=== PATIENT | male | born 1975 | race Two or more races ===

== ENCOUNTER 2016-08-10 18:11 | Inpatient (IN) | payer MEDICARE ==
[~2016-08-10] VITALS: Ht 175.3 cm; Wt 92.5 kg
[2016-08-10 19:56] LABS: BILIRUBIN,URINE SMALL (NEG); GLUCOSE,URINE NEGATIVE (NEG); NITRITE,URINE NEGATIVE (NEG); PH,URINE 5.5; PROTEIN,URINE 100 mg/dL (NEG-TRACE); UROBILINOGEN,URINE 0.2 mg/dL (0.2 mg/dL)
[2016-08-10] MEDS ORDERED: ONDANSETRON PF 4 MG/2 ML VIAL. IV ONE (20:00)
[2016-08-10] MEDS ORDERED: IV NORMAL SALINE 1000ML BAG 1,000 ML IV ONE (20:00)
[2016-08-10] MEDS ORDERED: FENTANYL PF 100 MCG/2 ML VIAL. IV ONE (20:00)
[2016-08-10 20:05] LABS: BASO # 0.1 x10^3/uL (0.0-0.2); BASO % 1 % (0-3); EOS % 2 % (0-3); HEMATOCRIT 48.4 % (39.0-53.0); HEMOGLOBIN 16.8 g/dL (13.0-17.5); LYMPH # 1.5 x10^3/uL (1.0-4.8); LYMPH % 14 % (24-48); MEAN CORPUSCULAR HEMOGLOBIN 31 pg (25-35); MEAN CORPUSCULAR HGB CONC 35 g/dL (31-37); MEAN CORPUSCULAR VOLUME 90 fL (79-100); MONO % 12 % (0-9); NEUT % 73 % (31-73); PLATELET COUNT 190 x10^3/uL (140-400); RED BLOOD COUNT 5.36 x10^6/uL (4.30-5.70); RED CELL DISTRIBUTION WIDTH 13.1 % (11.5-14.5); WHITE BLOOD COUNT 10.9 x10^3/uL (4.0-11.0)
[2016-08-10 20:21] LABS: BACTERIA,URINE 0 /HPF (0-FEW); SQUAMOUS EPITHELIAL CELL,UR OCC /LPF
[2016-08-10 20:21] LABS: CALCIUM 9.2 mg/dL (8.5-10.1); CREATININE 1.6 mg/dL (0.7-1.3); GFR 48.1; POTASSIUM 3.9 mmol/L (3.5-5.1)
[2016-08-10 20:28] LABS: ALBUMIN 3.7 g/dL (3.4-5.0); TOTAL BILIRUBIN 0.3 mg/dL (0.2-1.0); TOTAL PROTEIN 7.4 g/dL (6.4-8.2)
--- NOTE | 2016-08-10 20:33 | RAD ---
PROCEDURE CT scan of the abdomen and pelvis without contrast 08/10/2016 HISTORY Severe right flank pain since last week. TECHNIQUE Unenhanced contiguous, 2 millimeter axial sections were obtained through the abdomen and pelvis. One or more of the following individualized dose reduction techniques were utilized for this study: 1. Automated exposure control. 2. Adjustment of the mA and/or kV according to patient size. 3. Use of iterative reconstruction technique. FINDINGS Images through the lung bases demonstrate minimal dependent subsegmental atelectasis bilaterally. The liver, spleen, pancreas and adrenal glands are within normal limits. Several nonobstructing calculi are seen scattered throughout the left kidney. These measure 1-3 millimeters in size. There is no evidence of obstruction the left collecting system. Mild dilatation of the right intrarenal collecting system is seen. The right renal pelvis and proximal right ureter are dilated. Within the proximal/mid right ureter a 6 millimeter ureteral calculus is seen. This is at the L3 level. It is causing mild obstruction of the right collecting system. No additional ureteral calculus is noted. The abdominal aorta tapers normally. The gallbladder is slightly contracted. No free fluid or free air is seen within the abdomen. There is no evidence of bowel obstruction. Air and stool is seen throughout the colon. The appendix is partially visualized. Images through the pelvis demonstrate the urinary bladder to be contracted. A 2.3 centimeter calculus is seen within the left aspect of the urinary bladder. No free fluid is seen. Minimal S shaped curvature of the thoracolumbar spine is noted. IMPRESSION 1. 6 millimeter proximal/mid right ureteral calculus is seen which is causing mild obstruction of the right collecting system. 2. 2.3 centimeter bladder calculus. Electronically signed by: Sajan Luu MD (Aug 10, 2016 20:30:14)
[2016-08-10] MEDS ORDERED: HYDROMORPHONE 2 MG/ML VIAL. IV ONE (21:15)
[2016-08-10] MEDS ORDERED: ONDANSETRON PF 4 MG/2 ML VIAL. IV PRN (22:30)
--- NOTE | 2016-08-10 22:37 | PHYS DOC ---
Past Medical History Past Medical History: No Pertinent History Past Surgical History: Other Additional Past Surgical Histo: right eye; left AKA Alcohol Use: None Drug Use: None Adult General Chief Complaint Chief Complaint: FLANK PAIN HPI HPI 40-year-old male with a history of kidney stones presents with 2 day history of right flank pain that radiates to his groin. He was seen at an outside emergency department for the same a day or so ago was given Flomax and pain medication but has not gotten any better. He denies fever chills or sweats. He is not had any gross hematuria. [] Review of Systems Review of Systems Constitutional: Denies fever or chills [] Eyes: Denies change in visual acuity, redness, or eye pain [] HENT: Denies nasal congestion or sore throat [] Respiratory: Denies cough or shortness of breath [] Cardiovascular: No additional information not addressed in HPI [] GI: Per history of present illness [] : Denies dysuria or hematuria [] Musculoskeletal: Denies back pain or joint pain [] Integument: Denies rash or skin lesions [] Neurologic: Denies headache, focal weakness or sensory changes [] Endocrine: Denies polyuria or polydipsia [] Current Medications Current Medications Current Medications Medications (Trade) Dose Ordered Sig/Savi Start Time Stop Time Status Last Admin Dose Admin Fentanyl Citrate (Fentanyl 2ml Vial) 50 mcg 1X ONCE 08/10/16 20:00 08/10/16 20:01 DC 08/10/16 20:08 50 MCG Fentanyl Citrate 50 mcg 50 mcg PRN Q2HR PRN 08/10/16 22:30 08/11/16 22:29 UNV Hydromorphone HCl (Dilaudid) 1 mg 1X ONCE 08/10/16 21:15 08/10/16 21:16 DC 08/10/16 20:58 1 MG Ondansetron HCl (Zofran) 4 mg PRN Q8HRS PRN 08/10/16 22:30 08/11/16 22:29 Sodium Chloride (Iv Sodium Chloride 0.9% 1000ml Bag) 1,000 ml @ 150 mls/hr Q6H40M 08/10/16 22:29 08/11/16 22:28 UNV Allergies Allergies Allergies Coded Allergies Type Severity Reaction Last Updated Verified Penicillins Allergy Intermediate 08/10/16 Yes Physical Exam Physical Exam Constitutional: Well developed, well nourished, moderate distress, non-toxic appearance. [] HENT: Normocephalic, atraumatic, bilateral external ears normal, oropharynx moist, no oral exudates, nose normal. [] Eyes: PERRLA, EOMI, conjunctiva normal, no discharge. [] Neck: Normal range of motion, no tenderness, supple, no stridor. [] Cardiovascular:Heart rate regular rhythm, no murmur [] Lungs & Thorax: Bilateral breath sounds clear to auscultation [] Abdomen: Bowel sounds normal, soft, no tenderness, no masses, no pulsatile masses. [] Skin: Warm, dry, no erythema, no rash. [] Back: No tenderness, no CVA tenderness. [] Extremities: No tenderness, no cyanosis, no clubbing, ROM intact, no edema. [] Neurologic: Alert and oriented X 3, normal motor function, normal sensory function, no focal deficits noted. [] Psychologic: Anxious. [] Current Patient Data Vital Signs Vital Signs Date Time Temp Pulse Resp B/P Pulse Ox O2 Delivery O2 Flow Rate FiO2 08/10/16 21:58 89 18 144/100 93 Room Air 08/10/16 19:33 99.4 99.4 Lab Values Laboratory Tests Test 08/10/16 19:30 08/10/16 19:57 Urine Color Yellow Urine Clarity Clear Urine pH 5.5 Urine Specific [place] >=1.030 Urine Protein 100mg/dL (NEG-TRACE) Urine Glucose (UA) Negativemg/dL (NEG) Urine Ketones (Stick) 15mg/dL (NEG) Urine Blood Moderate (NEG) Urine Nitrite Negative (NEG) Urine Bilirubin Small (NEG) Urine Urobilinogen Dipstick 0.2mg/dL (0.2 mg/dL) Urine Leukocyte Esterase Small (NEG) Urine RBC 3-5/HPF (0-2) Urine WBC 11-20/HPF (0-4) Urine Squamous Epithelial Cells Occ/LPF Urine Bacteria 0/HPF (0-FEW) Urine Hyaline Casts Moderate/HPF Urine Mucus Mod/LPF White Blood Count 10.9x10^3/uL (4.0-11.0) Red Blood Count 5.36x10^6/uL (4.30-5.70) Hemoglobin 16.8g/dL (13.0-17.5) Hematocrit 48.4% (39.0-53.0) Mean Corpuscular Volume 90fL (79-100) Mean Corpuscular Hemoglobin 31pg (25-35) Mean Corpuscular Hemoglobin Concent 35g/dL (31-37) Red Cell Distribution Width 13.1% (11.5-14.5) Platelet Count 190x10^3/uL (140-400) Neutrophils (%) (Auto) 73% (31-73) Lymphocytes (%) (Auto) 14% (24-48) L Monocytes (%) (Auto) 12% (0-9) H Eosinophils (%) (Auto) 2% (0-3) Basophils (%) (Auto) 1% (0-3) Neutrophils # (Auto) 7.9x10^3uL (1.8-7.7) H Lymphocytes # (Auto) 1.5x10^3/uL (1.0-4.8) Monocytes # (Auto) 1.3x10^3/uL (0.0-1.1) H Eosinophils # (Auto) 0.2x10^3/uL (0.0-0.7) Basophils # (Auto) 0.1x10^3/uL (0.0-0.2) Sodium Level 143mmol/L (136-145) Potassium Level 3.9mmol/L (3.5-5.1) Chloride Level 106mmol/L (98-107) Carbon Dioxide Level 25mmol/L (21-32) Anion Gap 12 (6-14) Blood Urea Nitrogen 11mg/dL (8-26) Creatinine 1.6mg/dL (0.7-1.3) H Estimated GFR (Cockcroft-Gault) 48.1 BUN/Creatinine Ratio 7 (6-20) Glucose Level 120mg/dL (70-99) H Calcium Level 9.2mg/dL (8.5-10.1) Total Bilirubin 0.3mg/dL (0.2-1.0) Aspartate Amino Transferase (AST) 17U/L (15-37) Alanine Aminotransferase (ALT) 28U/L (16-63) Alkaline Phosphatase 92U/L (46-116) Total Protein 7.4g/dL (6.4-8.2) Albumin 3.7g/dL (3.4-5.0) Albumin/Globulin Ratio 1.0 (1.0-1.7) Laboratory Tests 08/10/16 19:57 Laboratory Tests 08/10/16 19:57 EKG EKG [] Radiology/Procedures Radiology/Procedures [] Impressions: REASON: flank pain PROCEDURE: ABDOMEN PELVIS WO CONTRAST PROCEDURE CT scan of the abdomen and pelvis without contrast 08/10/2016 HISTORY Severe right flank pain since last week. TECHNIQUE Unenhanced contiguous, 2 millimeter axial sections were obtained through the abdomen and pelvis. One or more of the following individualized dose reduction techniques were utilized for this study: 1. Automated exposure control. 2. Adjustment of the mA and/or kV according to patient size. 3. Use of iterative reconstruction technique. FINDINGS Images through the lung bases demonstrate minimal dependent subsegmental atelectasis bilaterally. The liver, spleen, pancreas and adrenal glands are within normal limits. Several nonobstructing calculi are seen scattered throughout the left kidney. These measure 1-3 millimeters in size. There is no evidence of obstruction the left collecting system. Mild dilatation of the right intrarenal collecting system is seen. The right renal pelvis and proximal right ureter are dilated. Within the proximal/mid right ureter a 6 millimeter ureteral calculus is seen. This is at the L3 level. It is causing mild obstruction of the right collecting system. No additional ureteral calculus is noted. The abdominal aorta tapers normally. The gallbladder is slightly contracted. No free fluid or free air is seen within the abdomen. There is no evidence of bowel obstruction. Air and stool is seen throughout the colon. The appendix is partially visualized. Images through the pelvis demonstrate the urinary bladder to be contracted. A 2.3 centimeter calculus is seen within the left aspect of the urinary bladder. No free fluid is seen. Minimal S shaped curvature of the thoracolumbar spine is noted. IMPRESSION 1. 6 millimeter proximal/mid right ureteral calculus is seen which is causing mild obstruction of the right collecting system. 2. 2.3 centimeter bladder calculus. Course & Med Decision Making Course & Med Decision Making Pertinent Labs and Imaging studies reviewed. (See chart for details) [ED course: Evaluation reveals 40-year-old male in moderate distress secondary to flank pain. He was given IV fluids multiple boluses pain medication and still not pain-free. CT scan shows a proximal 6 mm stone with mild hydronephrosis. Given the fact that he is failed outpatient treatment and not pain free tonight I feel the best suited for the patient to stay in the hospital and have urologic evaluation tomorrow. Patient is agreeable with this plan. I spoke with hospitalist who agreed to accept patient for admission and I will consult urology.] Dragon Disclaimer Dragon Disclaimer This electronic medical record was generated, in whole or in part, using a voice recognition dictation system. Departure Departure Impression: Primary Impression: Ureteral stone Disposition: ADMITTED INPATIENT Admitting Physician: Tay Matso Condition: STABLE Referrals: NO PCP (PCP) WHITLEY BRAVO DO Aug 10, 2016 22:37
[2016-08-10] MEDS ORDERED: CEFTRIAXONE 1GM IVPB FOR OMNI 50 ML IV ONE (23:00)
--- NOTE | 2016-08-10 23:09 | ACF ---
Admission Forms Criteria RENAL COLIC AND KIDNEY STONES Clinical Indications for Admission to Inpatient Care ( Place 'X' for any and all applicable criteria): Admission is indicated for ANY ONE of the following (1)(2)(3)(4): [X]I. Inpatient admission required rather than observation care (Also use Renal Colic and Kidney Stones: Observation Care Criteria as appropriate) because of ANY ONE of the following: [X]a) Severe pain requiring acute inpatient management [ ]b) Urinary tract infection identified [ ]c) Vomiting that is severe or persistent [ ]d) IV fluid required rather than oral rehydration to replace significant ongoing (eg, for greater than 24 hours) losses (greater than 200 mL/hr or 3 L/m2 per day) [ ]e) Percutaneous or open drainage (eg, abscess, biliary tract) procedures [ ]f) Other condition, treatment or monitoring requiring inpatient admission [ ]II. Impending acute renal failure [ ]III. Bilateral obstruction [ ]IV. Single kidney with obstruction [ ]V. Transplanted kidney with obstruction [ ]. Possible open surgical procedure needed (eg, pyonephrosis, stone removal not amendable to other means) [ ]VII. Hemodynamic instability Extended stay beyond goal length of stay may be needed for(2)(3)(31): [ ]a) Failed initial stone removal (32) [ ]b) Pyonephrosis [ ]c) Obstructive uropathy with urinary tract infection [ ]d) Procedure complications [ ]e) Comorbidities (22) The original [email or web address] content created by [employer] has been revised. The portions of the content which have been revised are identified through the use of italic text or in bold, and [facility] has neither reviewed nor approved the modified material. All other unmodified content is copyright [email or web address]. Please see references footnoted in the original [email or web address] edition 2016 Admission Criteria Met?: Yes STEPHANIE HYLTON Aug 10, 2016 23:09
[2016-08-10 23:20] VITALS: BP 133/92
[2016-08-10] MEDS: IV NORMAL SALINE 1000ML BAG 1,000 ML IV SCH (23:55)
[2016-08-10] MEDS: FENTANYL PF 100 MCG/2 ML VIAL. IV PRN (23:56)
[2016-08-11 03:00] VITALS: BP 130/93
[2016-08-11] MEDS: FENTANYL PF 100 MCG/2 ML VIAL. IV PRN ×3 (03:57→08:53)
[2016-08-11] MEDS: IV NORMAL SALINE 1000ML BAG 1,000 ML IV SCH (06:07)
[2016-08-11 07:00] VITALS: BP 136/99
[2016-08-11] MEDS ORDERED: IV NORMAL SALINE 1000ML BAG 1,000 ML IV SCH (10:04)
[2016-08-11] MEDS ORDERED: HYDROMORPHONE 2 MG/ML VIAL. IVP PRN (10:15)
[2016-08-11] MEDS ORDERED: FENTANYL PF 100 MCG/2 ML VIAL. IV PRN (10:15)
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
[2016-08-11 11:00] VITALS: BP 146/104
[2016-08-11] MEDS: TAMSULOSIN 0.4 MG CAP.ER.24H. PO SCH (12:59)
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
[2016-08-11 15:00] VITALS: BP 139/101
[2016-08-11 19:00] VITALS: BP 133/58
[2016-08-11 23:32] VITALS: BP 125/88
[2016-08-12 03:00] VITALS: BP 116/74
[2016-08-12 05:13] LABS: BASO % 1 % (0-3); EOS % 5 % (0-3); HEMATOCRIT 44.5 % (39.0-53.0); HEMOGLOBIN 15.1 g/dL (13.0-17.5); LYMPH # 2.4 x10^3/uL (1.0-4.8); LYMPH % 37 % (24-48); MEAN CORPUSCULAR HEMOGLOBIN 31 pg (25-35); MEAN CORPUSCULAR HGB CONC 34 g/dL (31-37); MEAN CORPUSCULAR VOLUME 90 fL (79-100); MONO % 12 % (0-9); NEUT % 45 % (31-73); PLATELET COUNT 188 x10^3/uL (140-400); RED BLOOD COUNT 4.93 x10^6/uL (4.30-5.70); WHITE BLOOD COUNT 6.4 x10^3/uL (4.0-11.0)
[2016-08-12 06:00] LABS: CALCIUM 8.7 mg/dL (8.5-10.1); CREATININE 1.3 mg/dL (0.7-1.3); GFR 61.1; POTASSIUM 3.7 mmol/L (3.5-5.1)
[2016-08-12 07:00] VITALS: BP 140/102
[2016-08-12] MEDS ORDERED: FENTANYL PF 100 MCG/2 ML VIAL. IV PRN ×2 (07:00)
[2016-08-12] MEDS ORDERED: PROCHLORPERAZINE 10 MG/2 ML VIAL. IV PRN (07:00)
[2016-08-12] MEDS ORDERED: MORPHINE SULFATE 2 MG/ML DISP.SYRIN. IV PRN (07:00)
[2016-08-12] MEDS ORDERED: ONDANSETRON PF 4 MG/2 ML VIAL. IV PRN (07:00)
[2016-08-12] MEDS ORDERED: LIDOCAINE 1% 1 ML SYRINGE. ID PRN (07:00)
[2016-08-12] MEDS ORDERED: HYDROMORPHONE 2 MG/ML VIAL. IV PRN (07:00)
[2016-08-12] MEDS ORDERED: IV RINGERS,LACTATED 1000ML 1,000 ML IV SCH (07:00)
[2016-08-12] MEDS: TAMSULOSIN 0.4 MG CAP.ER.24H. PO SCH (08:16)
--- NOTE | 2016-08-12 09:21 | RAD ---
Indication: Renal stone check. Time of exam 0912 hours. Correlation is made with abdominal CT from 08/10/2016. The mid right ureteric calculus noted on CT is not well visualized on the abdominal radiograph. No calculi within the expected course of the right ureter is seen. The large calculus in the pelvis is again noted consistent with a bladder calculus. The bowel gas pattern is unremarkable. Impression: Bladder calculus. No definite calculi within the course of the right ureter is identified.
--- NOTE | 2016-08-12 09:59 | PDOC ---
PROGRESS NOTES Subjective Subjective No pain since last night. Doing well. Objective Objective Vital Signs Date Time Temp Pulse Resp B/P Pulse Ox O2 Delivery O2 Flow Rate FiO2 08/12/16 07:00 98.2 75 18 140/102 100 Room Air 98.2 Intake and Output 08/12/16 07:00 Intake Total 1050 ml Output Total 2300 ml Balance -1250 ml Intake Oral 1050 ml Output Urine Total 2300 ml # Voids 3 Physical Exam Abdomen: Soft, No tenderness Heart: Regular rate General: Alert, Oriented X3, Cooperative HEENT: Atraumatic Lungs: Normal air movement Psych/Mental Status: Mental status NL Diagnosis Problems: (1) Bladder calculus (2) Ureteral stone Assessment Assessment Problems Medical Problems: (1) Bladder calculus Status: Acute (2) Intractable pain Status: Acute (3) Ureteral stone Status: Acute Plan Plan of Care - Doing better. Discussed with Primary team to have KUB this AM as patient has no pain. - If stone has moved or is no longer present, then it is reasonable to discharge with urology follow up to schedule cystolitholapaxy with Dr Hoskins and surgery would then be cancelled for today. Comment Review of Relevant I have reviewed the following items donovan (where applicable) has been applied. Labs Laboratory Tests Test 08/10/16 19:30 08/10/16 19:57 08/12/16 04:28 Urine Color Yellow Urine Clarity Clear Urine pH 5.5 Urine Specific [place] >=1.030 Urine Protein 100mg/dL (NEG-TRACE) Urine Glucose (UA) Negativemg/dL (NEG) Urine Ketones (Stick) 15mg/dL (NEG) Urine Blood Moderate (NEG) Urine Nitrite Negative (NEG) Urine Bilirubin Small (NEG) Urine Urobilinogen Dipstick 0.2mg/dL (0.2 mg/dL) Urine Leukocyte Esterase Small (NEG) Urine RBC 3-5/HPF (0-2) Urine WBC 11-20/HPF (0-4) Urine Squamous Epithelial Cells Occ/LPF Urine Bacteria 0/HPF (0-FEW) Urine Hyaline Casts Moderate/HPF Urine Mucus Mod/LPF White Blood Count 10.9x10^3/uL (4.0-11.0) 6.4x10^3/uL (4.0-11.0) Red Blood Count 5.36x10^6/uL (4.30-5.70) 4.93x10^6/uL (4.30-5.70) Hemoglobin 16.8g/dL (13.0-17.5) 15.1g/dL (13.0-17.5) Hematocrit 48.4% (39.0-53.0) 44.5% (39.0-53.0) Mean Corpuscular Volume 90fL (79-100) 90fL (79-100) Mean Corpuscular Hemoglobin 31pg (25-35) 31pg (25-35) Mean Corpuscular Hemoglobin Concent 35g/dL (31-37) 34g/dL (31-37) Red Cell Distribution Width 13.1% (11.5-14.5) 13.0% (11.5-14.5) Platelet Count 190x10^3/uL (140-400) 188x10^3/uL (140-400) Neutrophils (%) (Auto) 73% (31-73) 45% (31-73) Lymphocytes (%) (Auto) 14% (24-48) 37% (24-48) Monocytes (%) (Auto) 12% (0-9) 12% (0-9) Eosinophils (%) (Auto) 2% (0-3) 5% (0-3) Basophils (%) (Auto) 1% (0-3) 1% (0-3) Neutrophils # (Auto) 7.9x10^3uL (1.8-7.7) 2.9x10^3uL (1.8-7.7) Lymphocytes # (Auto) 1.5x10^3/uL (1.0-4.8) 2.4x10^3/uL (1.0-4.8) Monocytes # (Auto) 1.3x10^3/uL (0.0-1.1) 0.8x10^3/uL (0.0-1.1) Eosinophils # (Auto) 0.2x10^3/uL (0.0-0.7) 0.3x10^3/uL (0.0-0.7) Basophils # (Auto) 0.1x10^3/uL (0.0-0.2) 0.0x10^3/uL (0.0-0.2) Sodium Level 143mmol/L (136-145) 142mmol/L (136-145) Potassium Level 3.9mmol/L (3.5-5.1) 3.7mmol/L (3.5-5.1) Chloride Level 106mmol/L (98-107) 106mmol/L (98-107) Carbon Dioxide Level 25mmol/L (21-32) 27mmol/L (21-32) Anion Gap 12 (6-14) 9 (6-14) Blood Urea Nitrogen 11mg/dL (8-26) 9mg/dL (8-26) Creatinine 1.6mg/dL (0.7-1.3) 1.3mg/dL (0.7-1.3) Estimated GFR (Cockcroft-Gault) 48.1 61.1 BUN/Creatinine Ratio 7 (6-20) Glucose Level 120mg/dL (70-99) 100mg/dL (70-99) Calcium Level 9.2mg/dL (8.5-10.1) 8.7mg/dL (8.5-10.1) Total Bilirubin 0.3mg/dL (0.2-1.0) Aspartate Amino Transf (AST/SGOT) 17U/L (15-37) Alanine Aminotransferase (ALT/SGPT) 28U/L (16-63) Alkaline Phosphatase 92U/L (46-116) Total Protein 7.4g/dL (6.4-8.2) Albumin 3.7g/dL (3.4-5.0) Albumin/Globulin Ratio 1.0 (1.0-1.7) Laboratory Tests Test 08/12/16 04:28 White Blood Count 6.4x10^3/uL (4.0-11.0) Red Blood Count 4.93x10^6/uL (4.30-5.70) Hemoglobin 15.1g/dL (13.0-17.5) Hematocrit 44.5% (39.0-53.0) Mean Corpuscular Volume 90fL (79-100) Mean Corpuscular Hemoglobin 31pg (25-35) Mean Corpuscular Hemoglobin Concent 34g/dL (31-37) Red Cell Distribution Width 13.0% (11.5-14.5) Platelet Count 188x10^3/uL (140-400) Neutrophils (%) (Auto) 45% (31-73) Lymphocytes (%) (Auto) 37% (24-48) Monocytes (%) (Auto) 12% (0-9) Eosinophils (%) (Auto) 5% (0-3) Basophils (%) (Auto) 1% (0-3) Neutrophils # (Auto) 2.9x10^3uL (1.8-7.7) Lymphocytes # (Auto) 2.4x10^3/uL (1.0-4.8) Monocytes # (Auto) 0.8x10^3/uL (0.0-1.1) Eosinophils # (Auto) 0.3x10^3/uL (0.0-0.7) Basophils # (Auto) 0.0x10^3/uL (0.0-0.2) Sodium Level 142mmol/L (136-145) Potassium Level 3.7mmol/L (3.5-5.1) Chloride Level 106mmol/L (98-107) Carbon Dioxide Level 27mmol/L (21-32) Anion Gap 9 (6-14) Blood Urea Nitrogen 9mg/dL (8-26) Creatinine 1.3mg/dL (0.7-1.3) Estimated GFR (Cockcroft-Gault) 61.1 Glucose Level 100mg/dL (70-99) Calcium Level 8.7mg/dL (8.5-10.1) Medications Current Medications Sodium Chloride (Iv Sodium Chloride 0.9% 1000ml Bag) 1,000 ml @ 1,000 mls/hr 1X ONCE IV Last administered on 08/10/16 20:05; Start 08/10/16 at 20:00; Stop 08/10/16 at 20:59; Status DC Ondansetron HCl (Zofran) 4 mg 1X ONCE IV Last administered on 08/10/16 20:06 ; Start 08/10/16 at 20:00; Stop 08/10/16 at 20:01; Status DC Fentanyl Citrate (Fentanyl 2ml Vial) 50 mcg 1X ONCE IV Last administered on 20:08; Start 08/10/16 at 20:00; Stop 08/10/16 at 20:01; Status DC Hydromorphone HCl (Dilaudid) 1 mg 1X ONCE IV Last administered on 08/10/16 20 :58; Start 08/10/16 at 21:15; Stop 08/10/16 at 21:16; Status DC Ondansetron HCl (Zofran) 4 mg PRN Q8HRS PRN IV NAUSEA/VOMITING Last administered on 08/11/16 10:38; Start 08/10/16 at 22:30; Stop 08/11/16 at 22:29 ; Status DC Fentanyl Citrate 50 mcg 50 mcg PRN Q2HR PRN IV SEVERE PAIN Last administered on 08/11/16 08:53; Start 08/10/16 at 22:30; Stop 08/11/16 at 10:02; Status DC Sodium Chloride 1,000 ml @ 150 mls/hr Q6H40M IV Last administered on 06:07; Start 08/10/16 at 22:29; Stop 08/11/16 at 10:05; Status DC Ceftriaxone Sodium (Rocephin 1gm Ivpb For Omni) 50 ml @ 100 mls/hr 1X ONCE IV Last administered on 08/10/16 22:55; Start 08/10/16 at 23:00; Stop 08/10/16 at 23:29; Status DC Fentanyl Citrate (Fentanyl 2ml Vial) 75 mcg PRN Q2HR PRN IV SEVERE PAIN; Start 08/11/16 at 10:15 Hydromorphone HCl 1.2 mg 1.2 mg PRN Q2HR PRN IVP PAIN Last administered on 08/11 10:21; Start 08/11/16 at 10:15 Sodium Chloride (Iv Sodium Chloride 0.9% 1000ml Bag) 1,000 ml @ 200 mls/hr Q5H IV ; Start 08/11/16 at 10:04; Stop 08/11/16 at 10:14; Status DC Tamsulosin HCl (Flomax) 0.4 mg DAILY PO Last administered on 08/11/16 12:59; Start 08/11/16 at 11:00 Ondansetron HCl (Zofran) 4 mg PRN Q6HRS PRN IV Nausea Last administered on 08/11 16:51; Start 08/12/16 at 07:00; Stop 08/13/16 at 06:59 Fentanyl Citrate (Fentanyl 2ml Vial) 25 mcg PRN Q5MIN PRN IV MILD PAIN; Start 08/12/16 at 07:00; Stop 08/13/16 at 06:59 Fentanyl Citrate (Fentanyl 2ml Vial) 50 mcg PRN Q5MIN PRN IV MODERATE PAIN; Start 08/12/16 at 07:00; Stop 08/13/16 at 06:59 Morphine Sulfate 1 mg 1 mg PRN Q10MIN PRN IV SEVERE PAIN; Start 08/12/16 at 07: 00; Stop 08/13/16 at 06:59 Lactated Ringer's (Iv Lactated Ringers) 1,000 ml @ 0 mls/hr Q0M IV ; Start at 07:00; Stop 08/12/16 at 18:59 Lidocaine HCl 2 ml 1X PRN PRN ID IV START; Start 08/12/16 at 07:00; Stop at 06:59 Hydromorphone HCl (Dilaudid) 0.5 mg PRN Q10MIN PRN IV SEVERE PAIN, Second choice; Start 08/12/16 at 07:00; Stop 08/13/16 at 06:59 Prochlorperazine Edisylate (Compazine) 5 mg PACU PRN PRN IV NAUSEA; Start 08/12 at 07:00; Stop 08/13/16 at 06:59 Vitals/I & O Vital Sign - Last 24 Hours 08/11/16 08/11/16 08/11/16 08/11/16 10:21 10:55 11:00 15:00 Temp 98.1 98.8 98.1 98.8 Pulse 97 65 Resp 14 14 B/P 146/104 139/101 Pulse Ox 91 90 O2 Delivery Room Air Room Air Room Air Room Air 08/11/16 08/11/16 08/12/16 08/12/16 19:00 23:32 03:00 07:00 Temp 97.8 98.3 97.9 98.2 97.8 98.3 97.9 98.2 Pulse 58 82 62 75 Resp 18 18 20 18 B/P 133/58 125/88 116/74 140/102 Pulse Ox 100 95 95 100 O2 Delivery Room Air Room Air Room Air Room Air Intake and Output 08/11/16 08/11/16 08/12/16 15:00 23:00 07:00 Intake Total 1050 ml Output Total 750 ml 1550 ml Balance 300 ml -1550 ml AGUS CORADO MD Aug 12, 2016 09:59
[2016-08-12 11:00] VITALS: BP 140/98
[2016-08-12] MEDS ORDERED: ACET325T9 PO (11:50)
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
[2016-08-12 15:00] VITALS: BP 140/94
== END 2016-08-12 17:05 | disposition home or self-care (01) | DRG 694 ==
LOC: ER 18:11 → 4 NORTH 22:30 → OBSVTOIN 08-11 13:48
PROVIDERS: ADMIT Internal Medicine; ATTEND Internal Medicine
DX: N13.2 Hydronephrosis with renal and ureteral calculous obstruction (principal); L40.9 Psoriasis, unspecified; Z89.612 Acquired absence of left leg above knee; Z88.0 Allergy status to penicillin
CPT/HCPCS: 36415; 74000; 74176; 80048; 80053; 81001; 85027; 87086; 96361; 96365; 96375; G0378; G0379; J0690; J1170; J2405; J3010; J7030; 99285-25

== ENCOUNTER 2017-04-01 19:44 | Emergency (ER) | payer MEDICARE ==
[~2017-04-01] VITALS: Ht 175.3 cm; Wt 99.8 kg
[~2017-04-01 19:44] MED LIST: ACET325T9 PO
--- NOTE | 2017-04-01 20:07 | PHYS DOC ---
Past Medical History Past Medical History: No Pertinent History Past Surgical History: Other Additional Past Surgical Histo: right eye; left AKA Alcohol Use: None Drug Use: None Adult General Chief Complaint Chief Complaint: BLOOD IN URINE HPI HPI Patient is a 41 year old male with history of TIA, kidney stones who presents today with hematuria that began this evening. Patient denies any nausea/ vomiting. He states he has slight left lower quadrant abdominal pain. He states for the last couple days he has had trouble using the bathroom and thought it could be a kidney stone. Review of Systems Review of Systems Constitutional: Denies fever or chills [] Eyes: Denies change in visual acuity, redness, or eye pain [] HENT: Denies nasal congestion or sore throat [] Respiratory: Denies cough or shortness of breath [] Cardiovascular: No additional information not addressed in HPI [] GI:hematuria : Denies dysuria or hematuria [] Musculoskeletal: Denies back pain or joint pain [] Integument: Denies rash or skin lesions [] Neurologic: Denies headache, focal weakness or sensory changes [] Current Medications Current Medications Current Medications Medications (Trade) Dose Ordered Sig/Savi Start Time Stop Time Status Last Admin Dose Admin Sodium Chloride 1,000 ml @ 1,000 mls/hr 1X ONCE 04/01/17 20:15 04/01/17 21:14 DC 04/01/17 20:14 1,000 MLS/HR Tamsulosin HCl (Flomax) 0.4 mg 1X ONCE 04/01/17 20:15 04/01/17 20:16 DC 04/01/17 20:14 0.4 MG Allergies Allergies Allergies Coded Allergies Type Severity Reaction Last Updated Verified Penicillins Allergy Intermediate 08/10/16 Yes Physical Exam Physical Exam Constitutional: Well developed, well nourished, no acute distress, non-toxic appearance. [] HENT: Normocephalic, atraumatic, bilateral external ears normal, oropharynx moist, no oral exudates, nose normal. [] Eyes: PERRLA, EOMI, conjunctiva normal, no discharge. [] Neck: Normal range of motion, no tenderness, supple, no stridor. [] Cardiovascular:Heart rate regular rhythm, no murmur [] Lungs & Thorax: Bilateral breath sounds clear to auscultation [] Abdomen: Bowel sounds normal, soft, no tenderness, no masses, no pulsatile masses. [] Skin: Warm, dry, no erythema, no rash. [] Back: No tenderness, no CVA tenderness. [] Extremities: No tenderness, no cyanosis, no clubbing, ROM intact, no edema. [] Neurologic: Alert and oriented X 3, normal motor function, normal sensory function, no focal deficits noted. [] Psychologic: Affect normal, judgement normal, mood normal. [] Current Patient Data Vital Signs Vital Signs Date Time Temp Pulse Resp B/P (MAP) Pulse Ox O2 Delivery O2 Flow Rate FiO2 04/01/17 21:03 82 14 150/97 (114) 96 Room Air 04/01/17 20:00 98.1 98.1 Lab Values Laboratory Tests Test 04/01/17 19:50 04/01/17 20:00 Urine Collection Type Unknown Urine Color Red Urine Clarity Turbid Urine pH 6.0 Urine Specific [place] >=1.030 Urine Protein >=300 mg/dL (NEG-TRACE) Urine Glucose (UA) Negative mg/dL (NEG) Urine Ketones (Stick) Trace mg/dL (NEG) Urine Blood Large (NEG) Urine Nitrite Negative (NEG) Urine Bilirubin Small (NEG) Urine Urobilinogen Dipstick 1.0 mg/dL (0.2 mg/dL) Urine Leukocyte Esterase Moderate (NEG) Urine RBC >40 /HPF (0-2) Urine WBC 5-10 /HPF (0-4) Urine Squamous Epithelial Cells Occ /LPF Urine Bacteria Few /HPF (0-FEW) Urine Mucus Slight /LPF White Blood Count 9.9 x10^3/uL (4.0-11.0) Red Blood Count 5.35 x10^6/uL (4.30-5.70) Hemoglobin 16.7 g/dL (13.0-17.5) Hematocrit 48.4 % (39.0-53.0) Mean Corpuscular Volume 90 fL (79-100) Mean Corpuscular Hemoglobin 31 pg (25-35) Mean Corpuscular Hemoglobin Concent 35 g/dL (31-37) Red Cell Distribution Width 13.1 % (11.5-14.5) Platelet Count 233 x10^3/uL (140-400) Neutrophils (%) (Auto) 54 % (31-73) Lymphocytes (%) (Auto) 31 % (24-48) Monocytes (%) (Auto) 11 % (0-9) H Eosinophils (%) (Auto) 3 % (0-3) Basophils (%) (Auto) 1 % (0-3) Neutrophils # (Auto) 5.3 x10^3uL (1.8-7.7) Lymphocytes # (Auto) 3.1 x10^3/uL (1.0-4.8) Monocytes # (Auto) 1.1 x10^3/uL (0.0-1.1) Eosinophils # (Auto) 0.3 x10^3/uL (0.0-0.7) Basophils # (Auto) 0.1 x10^3/uL (0.0-0.2) Sodium Level 141 mmol/L (136-145) Potassium Level 3.3 mmol/L (3.5-5.1) L Chloride Level 106 mmol/L (98-107) Carbon Dioxide Level 28 mmol/L (21-32) Anion Gap 7 (6-14) Blood Urea Nitrogen 8 mg/dL (8-26) Creatinine 1.1 mg/dL (0.7-1.3) Estimated GFR (Cockcroft-Gault) 73.8 BUN/Creatinine Ratio 7 (6-20) Glucose Level 133 mg/dL (70-99) H Calcium Level 9.0 mg/dL (8.5-10.1) Total Bilirubin 0.4 mg/dL (0.2-1.0) Aspartate Amino Transferase (AST) 18 U/L (15-37) Alanine Aminotransferase (ALT) 37 U/L (16-63) Alkaline Phosphatase 82 U/L (46-116) Total Protein 7.7 g/dL (6.4-8.2) Albumin 4.0 g/dL (3.4-5.0) Albumin/Globulin Ratio 1.1 (1.0-1.7) Lipase 154 U/L (73-393) Laboratory Tests 04/01/17 20:00 Laboratory Tests 04/01/17 20:00 EKG EKG [] Radiology/Procedures Radiology/Procedures [] Course & Med Decision Making Course & Med Decision Making Pertinent Labs and Imaging studies reviewed. (See chart for details) This is a 41-year-old male patient presenting to the ED today with hematuria, left lower quadrant pain that began today. Patient has history of kidney stones. Urine positive for large amount of blood and leukocytes. CBC with no acute findings, CMP with no acute findings, CT of the abdomen and pelvic was negative for any acute findings but noted for multiple left-sided ureteral stones with mild dilatation of the distal ureter with no significant hydronephrosis. The ureteral stones are measured at 2-3 mm in size. Patient was also noted for calcified stones within the urinary bladder unchanged from his last CT as well as minimal left sided nephrolithiasis. Patient's pain is well- controlled in the ED. Talked to him about following up as an outpatient versus admission. Informed him we do not have a urologist at [facility]. Patient would like to be discharged with antibiotics and pain medicines. He stated he'll follow up with [facility] urology if we can give him contact information which I did. He was discharged with Cipro, hydrocodone, Flomax and promethazine. He was instructed to return to the ED if symptoms worsen. Dragon Disclaimer Dragon Disclaimer This electronic medical record was generated, in whole or in part, using a voice recognition dictation system. Departure Departure Impression: Primary Impression: Pyelonephritis Additional Impression: Ureteral stone Disposition: HOME, SELF-CARE Condition: STABLE Referrals: NO PCP (PCP) Follow up with [facility] urologist. Please call on Tuesday for appointment. Dr. Espinoza [phone] Patient Instructions: Kidney Stones, Pyelonephritis, Adult Additional Instructions: You were seen with kidney stones as well as infection in your urine. Please complete your antibiotics. Take the prescribed medicines as ordered. Follow-up with your doctor as well as the Urologist provided as soon as you can. Scripts Promethazine Hcl (PROMETHAZINE HCL) 25 Mg Tablet 1 TAB PO PRN Q6HRS, #20 TAB Prov: MUTUNGA,ADEN RAG SHREDDER 04/01/17 Hydrocodone/Apap 5-325 (NORCO 5-325 TABLET) 1 Each Tablet 1-2 TAB PO Q4-6HRS, #25 TAB Prov: MUTUNGA,ADEN RAG SHREDDER 04/01/17 Tamsulosin Hcl (FLOMAX) 0.4 Mg Cap.er.24h 1 CAP PO DAILY, #7 CAP 0 Refills Prov: MUTUNGA,ADEN RAG SHREDDER 04/01/17 Ciprofloxacin Hcl (CIPRO) 500 Mg Tablet 1 TAB PO BID, #14 TAB Prov: ADEN DESHPANDE APRN 04/01/17 Problem Qualifiers ADEN DESHPANDE APRN Apr 01, 2017 20:07
[2017-04-01 20:10] LABS: BILIRUBIN,URINE SMALL (NEG); GLUCOSE,URINE NEGATIVE (NEG); NITRITE,URINE NEGATIVE (NEG); PROTEIN,URINE >=300 mg/dL (NEG-TRACE)
[2017-04-01] MEDS ORDERED: IV NORMAL SALINE 1000ML BAG 1,000 ML IV ONE (20:15)
[2017-04-01] MEDS ORDERED: TAMSULOSIN 0.4 MG CAP.ER.24H. PO ONE (20:15)
[2017-04-01 20:28] LABS: BASO # 0.1 x10^3/uL (0.0-0.2); BASO % 1 % (0-3); EOS % 3 % (0-3); HEMATOCRIT 48.4 % (39.0-53.0); HEMOGLOBIN 16.7 g/dL (13.0-17.5); LYMPH # 3.1 x10^3/uL (1.0-4.8); LYMPH % 31 % (24-48); MEAN CORPUSCULAR HEMOGLOBIN 31 pg (25-35); MEAN CORPUSCULAR HGB CONC 35 g/dL (31-37); MEAN CORPUSCULAR VOLUME 90 fL (79-100); MONO % 11 % (0-9); NEUT % 54 % (31-73); PLATELET COUNT 233 x10^3/uL (140-400); RED BLOOD COUNT 5.35 x10^6/uL (4.30-5.70); RED CELL DISTRIBUTION WIDTH 13.1 % (11.5-14.5); WHITE BLOOD COUNT 9.9 x10^3/uL (4.0-11.0)
[2017-04-01 20:33] LABS: CREATININE 1.1 mg/dL (0.7-1.3); GFR 73.8; POTASSIUM 3.3 mmol/L (3.5-5.1)
[2017-04-01 20:38] LABS: ALBUMIN/GLOBULIN RATIO 1.1 (1.0-1.7); TOTAL BILIRUBIN 0.4 mg/dL (0.2-1.0); TOTAL PROTEIN 7.7 g/dL (6.4-8.2)
[2017-04-01 20:41] LABS: RBC,URINE >40 /HPF (0-2)
[2017-04-01 20:42] LABS: BACTERIA,URINE FEW /HPF (0-FEW); SQUAMOUS EPITHELIAL CELL,UR OCC /LPF
--- NOTE | 2017-04-01 21:42 | RAD ---
CT ABDOMEN PELVIS WO CONTRAST dated 04/01/2017 9:09 PM Indication: Left lower quadrant pain, pain for 2 days, hematuria. Pain Comparison: 08/10/2016 Technique: Contiguous axial imaging of the abdomen and pelvis performed without the administration of IV or oral contrast. One or more of the following individualized dose reduction techniques were utilized for this examination: 1. Automated exposure control 2. Adjustment of the mA and/or kV according to patient size 3. Use of iterative reconstruction technique Findings: Limited images of lung bases are clear. Heart size within normal limits. No pleural or pericardial effusion. Solid abdominal viscera not well evaluated in the absence of contrast material. No apparent attenuation abnormality of the liver or spleen. Pancreas, adrenal glands, gallbladder are unremarkable. There is a 2 mm calcific stone at the midpole left kidney. No right-sided ureteral stone. No hydronephrosis. There is a small calcific density at the mid left ureter on image 138 that measures about 2 to 3 mm in size. It is difficult to tell whether this is within the ureter or directly adjacent to the ureter, however is new from the prior exam. There is no significant hydronephrosis. Unopacified GI tract normal in caliber and contour. No focal bowel wall thickening. No inflammatory stranding in the mesentery. No ascites or lymphadenopathy. Abdominal aorta is normal in caliber. There are a few scattered diverticula within the colon. Images of pelvis show a 2.2 cm calcific stone within the urinary bladder, similar to prior exam. The distal left ureter is dilated and there are at least 3 calcific stones within the distal left ureter, largest of which measures 7 mm in size. Prostate gland mildly enlarged. Bone windows show no acute findings. Mild multilevel spondylosis. IMPRESSION: 1. Multiple left-sided ureteral stones. There is mild dilation of the distal left ureter. No significant hydronephrosis. 2. Large calcific stone within the urinary bladder, unchanged. 3. Minimal left-sided nephrolithiasis. 4. Otherwise no acute findings. Normal appendix. Electronically signed by: Mango Galaviz MD (04/01/2017 9:39 PM) [facility]
[2017-04-01] MEDS ORDERED: TAMS0.4C97 PO (22:08)
[2017-04-01] MEDS ORDERED: PROM25TA10 PO (22:08)
[2017-04-01] MEDS ORDERED: CIPR500T94 PO (22:08)
[2017-04-01] MEDS ORDERED: HYDR-971 PO (22:08)
[2017-04-01 22:15] VITALS: BP 148/80
== END 2017-04-01 22:25 | disposition home or self-care (01) ==
LOC: ER 19:44
DX: N12 Tubulo-interstitial nephritis, not specified as acute or chronic (principal); N20.1 Calculus of ureter; Z89.612 Acquired absence of left leg above knee; Z86.73 Personal history of transient ischemic attack (TIA), and cerebral infarction without residual deficits; Z87.442 Personal history of urinary calculi; Z88.0 Allergy status to penicillin
CPT/HCPCS: 36415; 74176; 80053; 81001; 83690; 85025; 87086; 87491; 87591; 96360; 99285; J7030

== ENCOUNTER 2017-05-01 09:15 | Emergency (ER) | payer MEDICARE ==
[~2017-05-01] VITALS: Ht 175.3 cm; Wt 99.8 kg
[~2017-05-01 09:15] MED LIST changes: +CIPR500T94 PO; +HYDR-971 PO; +PROM25TA10 PO; +TAMS0.4C97 PO
--- NOTE | 2017-05-01 09:18 | PHYS DOC ---
Past Medical History Past Medical History: Kidney Stone, Other Additional Past Medical Histor: TRAUMATIC BRAIN INJURY Past Surgical History: Other Additional Past Surgical Histo: right eye; left AKA Alcohol Use: None Drug Use: None Adult General Chief Complaint Chief Complaint: PAIN ON URINATION HPI HPI Patient is a 41 year old male who presents with dysuria. He states it started yesterday. He states it feels just like he's had his previous kidney stone. He' s noting blood in his urine. He states pain is in his bilateral flanks radiating down to his penis. He states is the exact same symptoms's had before. He is not taking Flomax anymore. He denies any nausea vomiting diarrhea or chest pain. He denies any testicular pain. He is not sexually active. Review of Systems Review of Systems Constitutional: Denies fever or chills [] Eyes: Denies change in visual acuity, redness, or eye pain [] HENT: Denies nasal congestion or sore throat [] Respiratory: Denies cough or shortness of breath [] Cardiovascular: No additional information not addressed in HPI [] GI: Positive for abdominal pain, Denies nausea, vomiting, bloody stools or diarrhea [] : Positive for dysuria, hematuria [] Musculoskeletal: Denies back pain or joint pain [] Integument: Denies rash or skin lesions [] Neurologic: Denies headache, focal weakness or sensory changes [] Endocrine: Denies polyuria or polydipsia [] Current Medications Current Medications Current Medications Medications (Trade) Dose Ordered Sig/Savi Start Time Stop Time Status Last Admin Dose Admin Morphine Sulfate 2 mg PRN Q15MIN PRN 05/01/17 09:30 05/02/17 09:29 05/01/17 09:49 2 MG Ondansetron HCl (Zofran) 4 mg 1X ONCE 05/01/17 09:45 05/01/17 09:46 DC 05/01/17 09:49 4 MG Sodium Chloride 1,000 ml @ 1,000 mls/hr Q1H 05/01/17 09:27 05/01/17 10:26 DC 05/01/17 09:45 1,000 MLS/HR Tamsulosin HCl (Flomax) 0.4 mg 1X ONCE 05/01/17 10:00 05/01/17 10:01 DC 05/01/17 10:21 0.4 MG Allergies Allergies Allergies Coded Allergies Type Severity Reaction Last Updated Verified Penicillins Allergy Intermediate 08/10/16 Yes Physical Exam Physical Exam Constitutional: Well developed, well nourished, no acute distress, non-toxic appearance. [] HENT: Normocephalic, atraumatic, bilateral external ears normal, oropharynx moist, no oral exudates, nose normal. [] Eyes: PERRLA, EOMI, conjunctiva normal, no discharge. [] Neck: Normal range of motion, no tenderness, supple, no stridor. [] Cardiovascular:Heart rate regular rhythm, no murmur [] Lungs & Thorax: Bilateral breath sounds clear to auscultation [] Abdomen: Bowel sounds normal, soft, no tenderness, no masses, no pulsatile masses. [] Skin: Warm, dry, no erythema, no rash. [] Back: No tenderness, no CVA tenderness. [] Extremities: No tenderness, no cyanosis, no clubbing, ROM intact, no edema. [] Neurologic: Alert and oriented X 3, normal motor function, normal sensory function, no focal deficits noted. [] Psychologic: Affect normal, judgement normal, mood normal. [] Current Patient Data Vital Signs Vital Signs Date Time Temp Pulse Resp B/P (MAP) Pulse Ox O2 Delivery O2 Flow Rate FiO2 05/01/17 11:30 65 16 140/102 (115) 95 Room Air 05/01/17 09:20 98.5 98.5 Lab Values Laboratory Tests Test 05/01/17 09:40 05/01/17 10:12 White Blood Count 5.4 x10^3/uL (4.0-11.0) Red Blood Count 5.42 x10^6/uL (4.30-5.70) Hemoglobin 16.9 g/dL (13.0-17.5) Hematocrit 48.9 % (39.0-53.0) Mean Corpuscular Volume 90 fL (79-100) Mean Corpuscular Hemoglobin 31 pg (25-35) Mean Corpuscular Hemoglobin Concent 35 g/dL (31-37) Red Cell Distribution Width 13.0 % (11.5-14.5) Platelet Count 209 x10^3/uL (140-400) Neutrophils (%) (Auto) 45 % (31-73) Lymphocytes (%) (Auto) 41 % (24-48) Monocytes (%) (Auto) 10 % (0-9) H Eosinophils (%) (Auto) 5 % (0-3) H Basophils (%) (Auto) 1 % (0-3) Neutrophils # (Auto) 2.4 x10^3uL (1.8-7.7) Lymphocytes # (Auto) 2.2 x10^3/uL (1.0-4.8) Monocytes # (Auto) 0.5 x10^3/uL (0.0-1.1) Eosinophils # (Auto) 0.3 x10^3/uL (0.0-0.7) Basophils # (Auto) 0.0 x10^3/uL (0.0-0.2) Sodium Level 142 mmol/L (136-145) Potassium Level 3.7 mmol/L (3.5-5.1) Chloride Level 107 mmol/L (98-107) Carbon Dioxide Level 27 mmol/L (21-32) Anion Gap 8 (6-14) Blood Urea Nitrogen 13 mg/dL (8-26) Creatinine 0.9 mg/dL (0.7-1.3) Estimated GFR (Cockcroft-Gault) 93.0 Glucose Level 101 mg/dL (70-99) H Calcium Level 8.6 mg/dL (8.5-10.1) Total Bilirubin 0.6 mg/dL (0.2-1.0) Direct Bilirubin 0.1 mg/dL (0.0-0.2) Aspartate Amino Transferase (AST) 15 U/L (15-37) Alanine Aminotransferase (ALT) 30 U/L (16-63) Alkaline Phosphatase 81 U/L (46-116) Creatine Kinase 88 U/L (39-308) Creatine Kinase MB (Mass) 0.5 ng/mL (0.0-3.6) Creatine Kinase MB Relative Index 0.6 % (0-4) Total Protein 7.3 g/dL (6.4-8.2) Albumin 3.7 g/dL (3.4-5.0) Urine Collection Type Unknown Urine Color Yellow Urine Clarity Clear Urine pH 6.5 Urine Specific [place] 1.025 Urine Protein 100 mg/dL (NEG-TRACE) Urine Glucose (UA) Negative mg/dL (NEG) Urine Ketones (Stick) Negative mg/dL (NEG) Urine Blood Large (NEG) Urine Nitrite Negative (NEG) Urine Bilirubin Negative (NEG) Urine Urobilinogen Dipstick 0.2 mg/dL (0.2 mg/dL) Urine Leukocyte Esterase Negative (NEG) Urine RBC >40 /HPF (0-2) Urine WBC Occ /HPF (0-4) Urine Squamous Epithelial Cells None /LPF Urine Bacteria Few /HPF (0-FEW) Urine Mucus Mod /LPF Urine Opiates Screen Pos (NEG) Urine Methadone Screen Neg (NEG) Urine Barbiturates Neg (NEG) Urine Phencyclidine Screen Neg (NEG) Urine Amphetamine/Methamphetamine Neg (NEG) Urine Benzodiazepines Screen Neg (NEG) Urine Cocaine Screen Neg (NEG) Urine Cannabinoids Screen Neg (NEG) Urine Ethyl Alcohol Neg (NEG) Laboratory Tests 05/01/17 09:40 Laboratory Tests 05/01/17 09:40 EKG EKG [] Radiology/Procedures Radiology/Procedures [facility] [address] [place] [address] IMAGING REPORT Signed PATIENT: CHARITY ARCE ACCOUNT: [id number] : 1975 LOCATION: ER AGE: 41 SEX: M EXAM STATUS: REG ER ORD. PHYSICIAN: ANUM STACY MD REASON: pain PROCEDURE: RENAL COMPLETE BILATERAL Renal sonography History: Low pelvic pain. Comparison: CT study dated April 01, 2017. Findings: The longitudinal and AP and transverse dimensions of the right kidney are 10.4 cm and 4.5 cm and 5.6 cm respectively. The longitudinal and AP and transverse dimensions of the left kidney are 12.4 cm and 5.7 cm and 6.2 cm respectively. No hydronephrosis or renal mass or perinephric fluid collection is seen on either side. The urinary bladder is mildly distended. There is a stone within the urinary bladder lumen measuring 26 mm in size which corresponds to the CT study finding. IMPRESSION: Urinary bladder stone. No hydronephrosis. DICTATED and SIGNED BY: RAVINDRA BELTRAN MD DATE: 05/01/17 1052 CC: NAUM STACY MD; NO PCP ~ Impressions: Dysuria Bladder stones Course & Med Decision Making Course & Med Decision Making Pertinent Labs and Imaging studies reviewed. (See chart for details) He states his pain is under control at this time. He has received IV fluids. Ultrasound of kidneys shows bladder stones without any hives or. Labs do not show any acute abnormality's. I suspect he passed a bladder stone analysis pain and discomfort. He is being discharged with Flomax, hydrocodone and follow-up with urology. Return precautions given. He is agreeable to the plan and being discharged in stable condition. Dragon Disclaimer Danielon Disclaimer This electronic medical record was generated, in whole or in part, using a voice recognition dictation system. Departure Departure Impression: Primary Impression: Bladder calculus Disposition: HOME, SELF-CARE Condition: STABLE Referrals: NO PCP (PCP) Patient Instructions: Dysuria-Brief Additional Instructions: You have a bladder stones and this is probably what hurt when he passed one of them. Your being discharged with Flomax and a few tablets of pain medicines that are narcotic. You will need to follow-up with [facility] urology. Please call their office at [phone]. They're located at [address] [place] [address], [address] in [place] [address]. If your pain gets worse, you have uncontrolled nausea vomiting or other concerns please return back to emergency department. Please don't drive your car while your taking [place] which is her narcotic pain medicine. It can make you sleepy and impair your judgment. Do not drink any alcohol while taking this medicine. Scripts Hydrocodone/Apap 5-325 (NORCO 5-325 TABLET) 1 Each Tablet 1-2 TAB PO PRN Q6HRS Y for PAIN, #10 TAB 0 Refills Prov: ANUM STACY MD 05/01/17 Tamsulosin Hcl (FLOMAX) 0.4 Mg Cap.er.24h 1 CAP PO DAILY, #30 CAP 0 Refills Prov: ANUM STACY MD 05/01/17 ANUM STACY MD May 01, 2017 09:18
[2017-05-01] MEDS ORDERED: IV NORMAL SALINE 1000ML BAG 1,000 ML IV SCH (09:27)
[2017-05-01] MEDS ORDERED: MORPHINE SULFATE 2 MG/ML DISP.SYRIN. IV/SQ PRN (09:30)
[2017-05-01] MEDS ORDERED: ONDANSETRON PF 4 MG/2 ML VIAL. IV ONE (09:45)
[2017-05-01 09:56] LABS: BASO % 1 % (0-3); EOS % 5 % (0-3); HEMATOCRIT 48.9 % (39.0-53.0); HEMOGLOBIN 16.9 g/dL (13.0-17.5); LYMPH # 2.2 x10^3/uL (1.0-4.8); LYMPH % 41 % (24-48); MEAN CORPUSCULAR HEMOGLOBIN 31 pg (25-35); MEAN CORPUSCULAR HGB CONC 35 g/dL (31-37); MEAN CORPUSCULAR VOLUME 90 fL (79-100); MONO % 10 % (0-9); NEUT % 45 % (31-73); PLATELET COUNT 209 x10^3/uL (140-400); RED BLOOD COUNT 5.42 x10^6/uL (4.30-5.70); WHITE BLOOD COUNT 5.4 x10^3/uL (4.0-11.0)
[2017-05-01] MEDS ORDERED: TAMSULOSIN 0.4 MG CAP.ER.24H. PO ONE (10:00)
[2017-05-01 10:03] LABS: CALCIUM 8.6 mg/dL (8.5-10.1); CREATININE 0.9 mg/dL (0.7-1.3); POTASSIUM 3.7 mmol/L (3.5-5.1)
[2017-05-01 10:09] LABS: ALBUMIN 3.7 g/dL (3.4-5.0); DIRECT BILIRUBIN 0.1 mg/dL (0.0-0.2); TOTAL BILIRUBIN 0.6 mg/dL (0.2-1.0); TOTAL PROTEIN 7.3 g/dL (6.4-8.2)
[2017-05-01 10:17] LABS: CKMB MASS 0.5 ng/mL (0.0-3.6)
[2017-05-01 10:33] LABS: BARBITURATES NEG (NEG); BENZODIAZEPINES NEG (NEG); CANNABINOIDS NEG (NEG); COCAINE NEG (NEG); METHADONE NEG (NEG); OPIATES POS (NEG); PHENCYCLIDINE NEG (NEG)
[2017-05-01 10:37] LABS: BILIRUBIN,URINE NEGATIVE (NEG); GLUCOSE,URINE NEGATIVE (NEG); PH,URINE 6.5; PROTEIN,URINE 100 mg/dL (NEG-TRACE)
[2017-05-01 10:38] LABS: BACTERIA,URINE FEW /HPF (0-FEW); NITRITE,URINE NEGATIVE (NEG); RBC,URINE >40 /HPF (0-2); UROBILINOGEN,URINE 0.2 mg/dL (0.2 mg/dL); WBC,URINE OCC /HPF (0-4)
--- NOTE | 2017-05-01 10:59 | RAD ---
Renal sonography History: Low pelvic pain. Comparison: CT study dated April 01, 2017. Findings: The longitudinal and AP and transverse dimensions of the right kidney are 10.4 cm and 4.5 cm and 5.6 cm respectively. The longitudinal and AP and transverse dimensions of the left kidney are 12.4 cm and 5.7 cm and 6.2 cm respectively. No hydronephrosis or renal mass or perinephric fluid collection is seen on either side. The urinary bladder is mildly distended. There is a stone within the urinary bladder lumen measuring 26 mm in size which corresponds to the CT study finding. IMPRESSION: Urinary bladder stone. No hydronephrosis.
[2017-05-01] MEDS ORDERED: TAMS0.4C97 PO (12:48)
[2017-05-01] MEDS ORDERED: HYDR-971 PO (12:49)
[2017-05-01 13:03] VITALS: BP 130/86
== END 2017-05-01 13:15 | disposition home or self-care (01) ==
LOC: ER 09:15
DX: N21.0 Calculus in bladder (principal); R30.0 Dysuria; Z87.442 Personal history of urinary calculi; Z88.0 Allergy status to penicillin
CPT/HCPCS: 36415; 76770; 80048; 80076; 80307; 81001; 82553; 85025; 96361; 96374; 96375; 99285; J2270; J2405; J7030; G0479

== ENCOUNTER 2017-11-05 12:07 | Emergency (ER) | payer BC, MEDICARE ==
[2017-11-05] MEDS: IV NORMAL SALINE 1000ML BAG 1,000 ML IV (12:34)
[2017-11-05 12:39] LABS: ADD MAN DIFF? NO
[2017-11-05 12:48] LABS: ANION GAP 9 (6-14); BASO # 0.1 x10^3/uL (0.0-0.2); BASO % 1 % (0-3); BLOOD UREA NITROGEN 10 mg/dL (8-26); BUN/CREATININE RATIO 8 (6-20); CALCIUM 8.7 mg/dL (8.5-10.1); CARBON DIOXIDE 29 mmol/L (21-32); CHLORIDE 104 mmol/L (98-107); CREATININE 1.2 mg/dL (0.7-1.3); EOS # 0.3 x10^3/uL (0.0-0.7); EOS % 4 % (0-3); GFR 66.4; GLUCOSE 94 mg/dL (70-99); HEMATOCRIT 46.4 % (39.0-53.0); HEMOGLOBIN 16.4 g/dL (13.0-17.5); LYMPH # 2.3 x10^3/uL (1.0-4.8); LYMPH % 30 % (24-48); MEAN CORPUSCULAR HEMOGLOBIN 32 pg (25-35); MEAN CORPUSCULAR HGB CONC 35 g/dL (31-37); MEAN CORPUSCULAR VOLUME 91 fL (79-100); MONO # 0.9 x10^3/uL (0.0-1.1); MONO % 12 % (0-9); NEUT # 4.1 x10^3uL (1.8-7.7); NEUT % 53 % (31-73); PLATELET COUNT 247 x10^3/uL (140-400); POTASSIUM 3.7 mmol/L (3.5-5.1); RED BLOOD COUNT 5.11 x10^6/uL (4.30-5.70); RED CELL DISTRIBUTION WIDTH 13.2 % (11.5-14.5); SODIUM 142 mmol/L (136-145); WHITE BLOOD COUNT 7.7 x10^3/uL (4.0-11.0)
[2017-11-05 12:54] LABS: ALBUMIN 3.2 g/dL (3.4-5.0); ALBUMIN/GLOBULIN RATIO 0.8 (1.0-1.7); ALK PHOS 112 U/L (46-116); ALT (SGPT) 32 U/L (16-63); AST (SGOT) 19 U/L (15-37); TOTAL BILIRUBIN 0.3 mg/dL (0.2-1.0); TOTAL PROTEIN 7.4 g/dL (6.4-8.2)
== END 2017-11-05 14:42 | disposition home or self-care (01) ==
LOC: ER 12:07
DX: L03.114 Cellulitis of left upper limb (principal); L03.113 Cellulitis of right upper limb; E86.0 Dehydration; F15.10 Other stimulant abuse, uncomplicated; Z87.442 Personal history of urinary calculi; Z89.612 Acquired absence of left leg above knee; Z88.0 Allergy status to penicillin
CPT/HCPCS: 36415; 80053; 85025; 96360; 99284-25; J7030

== ENCOUNTER 2019-12-24 21:59 | Emergency (ER) | payer BC, MEDICARE ==
[~2019-12-24] VITALS: Ht 175.3 cm; Wt 99.0 kg
[~2019-12-24 21:59] MED LIST changes: +HYDR-3164 PO; -HYDR-971 PO
[2019-12-24] MEDS ORDERED: IV NORMAL SALINE 1000ML BAG 1,000 ML IV SCH (22:16)
[2019-12-24] MEDS ORDERED: LIDO:MAALOX 1:1 20 ML SINGLE DOSE. SWSW ONE (22:30)
[2019-12-24 22:44] LABS: BASO % 1 % (0-3); EOS # 0.3 x10^3/uL (0.0-0.7); EOS % 4 % (0-3); HEMATOCRIT 41.4 % (39.0-53.0); HEMOGLOBIN 14.4 g/dL (13.0-17.5); LYMPH # 2.5 x10^3/uL (1.0-4.8); LYMPH % 35 % (24-48); MEAN CORPUSCULAR HEMOGLOBIN 31 pg (25-35); MEAN CORPUSCULAR HGB CONC 35 g/dL (31-37); MEAN CORPUSCULAR VOLUME 89 fL (79-100); MONO # 0.7 x10^3/uL (0.0-1.1); MONO % 10 % (0-9); NEUT # 3.7 x10^3/uL (1.8-7.7); NEUT % 51 % (31-73); PLATELET COUNT 212 x10^3/uL (140-400); RED BLOOD COUNT 4.65 x10^6/uL (4.30-5.70); RED CELL DISTRIBUTION WIDTH 13.7 % (11.5-14.5); WHITE BLOOD COUNT 7.3 x10^3/uL (4.0-11.0)
--- NOTE | 2019-12-24 22:48 | RAD ---
Exam: Chest one view INDICATION: Chest pain TECHNIQUE: Frontal view of the chest Comparisons: None FINDINGS: The cardiomediastinal silhouette and pulmonary vessels are within normal limits. The lung and pleural spaces are clear. IMPRESSION: No acute cardiopulmonary process. Electronically signed by: Mirtha Rogel MD (12/24/2019 10:45 PM) [id number]
[2019-12-24 22:52] LABS: CALCIUM 8.1 mg/dL (8.5-10.1); CREATININE 1.2 mg/dL (0.7-1.3); GFR 65.8; POTASSIUM 3.4 mmol/L (3.5-5.1)
[2019-12-24 22:57] LABS: ALBUMIN 3.2 g/dL (3.4-5.0); ALBUMIN/GLOBULIN RATIO 0.9 (1.0-1.7); MAGNESIUM 1.9 mg/dL (1.8-2.4); TOTAL BILIRUBIN 0.3 mg/dL (0.2-1.0); TOTAL PROTEIN 6.6 g/dL (6.4-8.2)
[2019-12-24 23:18] LABS: BILIRUBIN,URINE NEGATIVE (NEG); CLARITY,URINE CLOUDY; COLOR,URINE YELLOW; NITRITE,URINE NEGATIVE (NEG); PH,URINE 6.5 (<5.0-8.0); PROTEIN,URINE NEGATIVE (NEG-TRACE)
[2019-12-24 23:25] LABS: BACTERIA,URINE 0 /HPF (0-FEW); RBC,URINE OCC /HPF (0-2)
[2019-12-24 23:26] LABS: AMORPHOUS SEDIMENT,UR PRESENT /HPF; SQUAMOUS EPITHELIAL CELL,UR OCC /LPF
[2019-12-25] MEDS ORDERED: FAMO-63 PO (00:33)
--- NOTE | 2019-12-25 00:33 | PHYS DOC ---
Past Medical History Past Medical History: Other Additional Past Medical Histor: TBI, Rhoda COCHRAN. Past Surgical History: Other Additional Past Surgical Histo: L AKA, eye surgery Smoking Status: Never Smoker Alcohol Use: Occasionally Drug Use: Methamphetamine General Adult EDM: Chief Complaint: CHEST PAIN HPI: HPI: Patient is a 44 year old male who presents with complaint of chest discomfort that radiates from his stomach up to his throat that he describes as burning and sometimes sharp. Patient states that it started yesterday and nothing has been improving it. He denies any shortness of breath but does admit to some nausea. He has had no vomiting. Patient rates pain at a 7 out of 10. He does indicate that he has a history of reflux and this is similar to when he had had reflux in the past. [] Review of Systems: Review of Systems: Constitutional: Denies fever or chills. [] Respiratory: Denies cough or shortness of breath. [] Cardiovascular: Complains of burning chest pain. [] GI: Complains of epigastric discomfort with nausea. Denies vomiting or diarrhea. [] Neurologic: Denies headache, focal weakness or sensory changes. [] A full 10 point review of systems has been reviewed and is otherwise negative. Heart Score: Risk Factors: Risk Factors: DM, Current or recent (<one month) smoker, HTN, HLP, family history of CAD, obesity. Risk Scores: Score 0 - 3: 2.5% MACE over next 6 weeks - Discharge Home Score 4 - 6: 20.3% MACE over next 6 weeks - Admit for Clinical Observation Score 7 - 10: 72.7% MACE over next 6 weeks - Early Invasive Strategies Current Medications: Current Medications Medications (Trade) Dose Ordered Sig/Savi Start Time Stop Time Status Last Admin Dose Admin Multi-Ingredient Mouthwash/Gargle (Gi Cocktail) 20 ml 1X ONCE 12/24/19 22:30 12/24/19 22:31 DC 12/24/19 22:41 20 ML Sodium Chloride 1,000 ml @ 1,000 mls/hr Q1H 12/24/19 22:16 12/24/19 23:15 DC 12/24/19 22:41 1,000 MLS/HR Allergies: Allergies: Allergies Coded Allergies Type Severity Reaction Last Updated Verified Penicillins Allergy Intermediate 08/10/16 Yes Physical Exam: PE: Constitutional: Well developed, well nourished, no acute distress, non-toxic appearance. [] HENT: Normocephalic, atraumatic, bilateral external ears normal, oropharynx moist, no oral exudates, nose normal. [] Eyes: PERRLA, EOMI, conjunctiva normal, no discharge. [] Neck: Normal range of motion, no tenderness, supple. [] Cardiovascular: Regular rate and rhythm [] Lungs & Thorax: Bilateral breath sounds clear to auscultation [] Abdomen: Bowel sounds normal, soft, with mild epigastric tenderness. [] Skin: Warm, dry, no erythema, no rash. [] Extremities: No tenderness, no cyanosis, no clubbing, ROM intact. [] Neurologic: Alert and oriented X 3, no focal deficits noted. [] Current Patient Data: Labs: Laboratory Tests Test 12/24/19 22:29 12/24/19 23:11 White Blood Count 7.3 x10^3/uL (4.0-11.0) Red Blood Count 4.65 x10^6/uL (4.30-5.70) Hemoglobin 14.4 g/dL (13.0-17.5) Hematocrit 41.4 % (39.0-53.0) Mean Corpuscular Volume 89 fL (79-100) Mean Corpuscular Hemoglobin 31 pg (25-35) Mean Corpuscular Hemoglobin Concent 35 g/dL (31-37) Red Cell Distribution Width 13.7 % (11.5-14.5) Platelet Count 212 x10^3/uL (140-400) Neutrophils (%) (Auto) 51 % (31-73) Lymphocytes (%) (Auto) 35 % (24-48) Monocytes (%) (Auto) 10 % (0-9) H Eosinophils (%) (Auto) 4 % (0-3) H Basophils (%) (Auto) 1 % (0-3) Neutrophils # (Auto) 3.7 x10^3/uL (1.8-7.7) Lymphocytes # (Auto) 2.5 x10^3/uL (1.0-4.8) Monocytes # (Auto) 0.7 x10^3/uL (0.0-1.1) Eosinophils # (Auto) 0.3 x10^3/uL (0.0-0.7) Basophils # (Auto) 0.0 x10^3/uL (0.0-0.2) Sodium Level 141 mmol/L (136-145) Potassium Level 3.4 mmol/L (3.5-5.1) L Chloride Level 107 mmol/L (98-107) Carbon Dioxide Level 28 mmol/L (21-32) Anion Gap 6 (6-14) Blood Urea Nitrogen 10 mg/dL (8-26) Creatinine 1.2 mg/dL (0.7-1.3) Estimated GFR (Cockcroft-Gault) 65.8 BUN/Creatinine Ratio 8 (6-20) Glucose Level 148 mg/dL (70-99) H Calcium Level 8.1 mg/dL (8.5-10.1) L Magnesium Level 1.9 mg/dL (1.8-2.4) Total Bilirubin 0.3 mg/dL (0.2-1.0) Aspartate Amino Transferase (AST) 19 U/L (15-37) Alanine Aminotransferase (ALT) 24 U/L (16-63) Alkaline Phosphatase 77 U/L (46-116) Troponin I Quantitative < 0.017 ng/mL (0.000-0.055) SC-Zlq-[id number]-Type Natriuretic Peptide 42 pg/mL (0-124) Total Protein 6.6 g/dL (6.4-8.2) Albumin 3.2 g/dL (3.4-5.0) L Albumin/Globulin Ratio 0.9 (1.0-1.7) L Lipase 184 U/L (73-393) Urine Collection Type Unknown Urine Color Yellow Urine Clarity Cloudy Urine pH 6.5 (<5.0-8.0) Urine Specific [place] 1.020 (1.000-1.030) Urine Protein Negative mg/dL (NEG-TRACE) Urine Glucose (UA) Negative mg/dL (NEG) Urine Ketones (Stick) Negative mg/dL (NEG) Urine Blood Negative (NEG) Urine Nitrite Negative (NEG) Urine Bilirubin Negative (NEG) Urine Urobilinogen Dipstick 1.0 mg/dL (0.2 mg/dL) Urine Leukocyte Esterase Small (NEG) Urine RBC Occ /HPF (0-2) Urine WBC 1-4 /HPF (0-4) Urine Squamous Epithelial Cells Occ /LPF Urine Amorphous Sediment Present /HPF Urine Bacteria 0 /HPF (0-FEW) Urine Mucus Mod /LPF Laboratory Tests 12/24/19 22:29 Laboratory Tests 12/24/19 22:29 Vital Signs: Vital Signs Date Time Temp Pulse Resp B/P (MAP) Pulse Ox O2 Delivery O2 Flow Rate FiO2 12/24/19 23:08 92 187/92 (123) 98 Room Air 12/24/19 22:06 97.8 20 97.8 EKG: EKG: EKG demonstrates normal sinus rhythm with rate of 98. [] Radiology/Procedures: Radiology/Procedures: [] Impression: PROCEDURE: PORTABLE CHEST 1V Exam: Chest one view INDICATION: Chest pain TECHNIQUE: Frontal view of the chest Comparisons: None FINDINGS: The cardiomediastinal silhouette and pulmonary vessels are within normal limits. The lung and pleural spaces are clear. IMPRESSION: No acute cardiopulmonary process. Electronically signed by: Mirtha Rogel MD (12/24/2019 10:45 PM) [id number] Course & Med Decision Making: Course & Med Decision Making Pertinent Labs and Imaging studies reviewed. (See chart for details) Patient moved to room upon arrival was evaluated by ER medical staff after which an IV was established and blood work was drawn. Patient given a GI cocktail and had near immediate relief of his discomfort. Patient's work-up completed and was unremarkable. Patient still asymptomatic at discharge. Monique Disclaimer: Monique Disclaimer: This electronic medical record was generated, in whole or in part, using a voice recognition dictation system. Departure Departure Impression: Primary Impression: GERD (gastroesophageal reflux disease) Qualified Codes: K21.9 - Gastro-esophageal reflux disease without esophagi tis Disposition: 01 HOME, SELF-CARE Condition: STABLE Referrals: NO PCP (PCP) Patient Instructions: Diet for Gastroesophageal Reflux Disease, Adult, Gastroesophageal Reflux Disease, Adult Scripts Famotidine (PEPCID) 20 Mg Tablet 20 MG PO BID PRN for GI SYMPTOMS, #30 TAB Prov: JACK JACKSON Jr. DO 12/25/19 Justicifation of Admission Dx: Justifications for Admission: Justification of Admission Dx: N/A JACK JACKSON Jr. DO Dec 25, 2019 00:33
[2019-12-25 00:35] VITALS: BP 149/79
--- NOTE | 2019-12-25 06:48 | EKG ---
[facility] [address] [place] [address] Test Date: 2019-12-24 Test Time: 22:06:58 Pat Name: CHARITY ARCE Department: Room: Gender: M [employer] Machine: : 1975 Requested By: JACK JACKSON Order Number: [id number] Reading MD: Roberto Royal Measurements Intervals [place] Rate: 98 P: 48 FL: 138 QRS: -36 QRSD: 90 T: 44 QT: 336 QTc: 431 Interpretive Statements SINUS RHYTHM ABNORMAL LEFT AXIS DEVIATION Electronically Signed On 12-28-2019 16:07:03 CDT by Roberto Royal
== END 2019-12-25 00:42 | disposition home or self-care (01) ==
LOC: ER 21:59
DX: K21.9 Gastro-esophageal reflux disease without esophagitis (principal); Z88.0 Allergy status to penicillin
CPT/HCPCS: 36415; 71045; 80053; 81001; 83690; 83735; 83880; 84484; 85025; 87086; 93005; 99285; J7030

== ENCOUNTER 2020-05-10 16:56 | Emergency (ER) | payer MEDICARE ==
[~2020-05-10] VITALS: Ht 175.3 cm; Wt 100.0 kg
[~2020-05-10 16:56] MED LIST changes: +FAMO-63 PO
[2020-05-10 17:15] VITALS: BP 169/109
== END 2020-05-10 17:45 | disposition left against medical advice (07) ==
LOC: ER 16:56
DX: M79.605 Pain in left leg (principal); Z53.21 Procedure and treatment not carried out due to patient leaving prior to being seen by health care provider

== ENCOUNTER 2020-06-10 09:56 | Emergency (ER) | payer MEDICARE ==
[~2020-06-10] VITALS: Ht 175.3 cm; Wt 100.0 kg
[2020-06-10] MEDS ORDERED: 0.9 % SODIUM CHLORIDE 10 ML DISP.SYRIN. IV PRN (12:30)
[2020-06-10] MEDS ORDERED: MORPHINE SULFATE 4 MG/ML VIAL. IV/SQ PRN (12:30)
[2020-06-10] MEDS ORDERED: PIPERACILLIN/TAZOBACTAM 4.5 GM in IV NORMAL SALINE 100ML 100 ML IV ONE (12:30)
[2020-06-10] MEDS ORDERED: VANCOMYCIN PER PHARMACY MC ONE (12:30)
[2020-06-10] MEDS ORDERED: TETANUS AND DIPHTHERIA TOX/PF 0.5 ML DISP.SYRIN. VAX IM ONE (12:30)
[2020-06-10] MEDS ORDERED: VANCOMYCIN 2 GM in IV NORMAL SALINE 500ML BAG 500 ML IV ONE (13:00)
[2020-06-10] MEDS ORDERED: CEFEPIME HCL IV Push 2 GM VIAL. IVP ONE (13:00)
--- NOTE | 2020-06-10 13:14 | RAD ---
EXAM: Right upper extremity venous Doppler. HISTORY: Right upper extremity pain/swelling. COMPARISON: None. FINDINGS: Grayscale and Doppler analysis of the right upper extremity deep venous system was performed with graded compression and augmentation. The internal jugular, subclavian, axillary, brachial, basilic, cephalic, radial and ulnar veins were assessed. There is no evidence of deep venous thrombosis. Subcutaneous edema is noted. IMPRESSION: 1. No evidence of deep venous thrombosis. Electronically signed by: Craig Rutledge MD (06/10/2020 1:11 PM) [id number]
[2020-06-10 13:20] LABS: BASO # 0.1 x10^3/uL (0.0-0.2); BASO % 1 % (0-3); EOS # 0.3 x10^3/uL (0.0-0.7); EOS % 4 % (0-3); HEMATOCRIT 46.1 % (39.0-53.0); HEMOGLOBIN 15.5 g/dL (13.0-17.5); LYMPH # 1.9 x10^3/uL (1.0-4.8); LYMPH % 22 % (24-48); MEAN CORPUSCULAR HEMOGLOBIN 30 pg (25-35); MEAN CORPUSCULAR HGB CONC 34 g/dL (31-37); MEAN CORPUSCULAR VOLUME 89 fL (79-100); MONO # 0.8 x10^3/uL (0.0-1.1); MONO % 9 % (0-9); NEUT # 5.6 x10^3/uL (1.8-7.7); NEUT % 65 % (31-73); PLATELET COUNT 293 x10^3/uL (140-400); RED BLOOD COUNT 5.17 x10^6/uL (4.30-5.70); RED CELL DISTRIBUTION WIDTH 13.1 % (11.5-14.5); WHITE BLOOD COUNT 8.6 x10^3/uL (4.0-11.0)
--- NOTE | 2020-06-10 13:22 | RAD ---
EXAM: ELBOW RIGHT 3V 06/10/2020 12:18 PM CLINICAL INDICATION:Abscess at antecubital fossa from drug use. COMPARISON:None TECHNIQUE:3 views of the right elbow. FINDINGS:No acute fracture. Alignment is normal. There is no joint effusion. There is diffuse subcutaneous edema. There is some soft tissue gas along the medial epicondyles and a small focus of soft tissue gas at the volar radial aspect of the elbow on oblique view. Probable packing material within the soft tissue at the antecubital fossa. Mild soft tissue thickening over the olecranon suspicious for bursitis. IMPRESSION:Diffuse subcutaneous edema with soft tissue gas along the medial epicondyle and to less extent at the volar radial aspect of the elbow. Probable olecranon bursitis. No joint effusion. Electronically signed by: Ruba Laguerre MD (06/10/2020 1:19 PM) [id number]
[2020-06-10 13:38] LABS: CALCIUM 8.9 mg/dL (8.5-10.1); GFR 81.2; POTASSIUM 3.7 mmol/L (3.5-5.1)
[2020-06-10 13:49] LABS: ALBUMIN 3.3 g/dL (3.4-5.0); ALBUMIN/GLOBULIN RATIO 0.8 (1.0-1.7); TOTAL BILIRUBIN 0.3 mg/dL (0.2-1.0); TOTAL PROTEIN 7.6 g/dL (6.4-8.2)
[2020-06-10 14:07] VITALS: BP 153/101
[2020-06-10] MEDS ORDERED: DIPH,PERTUSS(ACELL),TET VAC/PF 0.5 ML SYRINGE. VAX IM ONE (14:15)
[2020-06-10] MEDS ORDERED: SULF1TAB24 PO (14:36)
--- NOTE | 2020-06-10 14:36 | PHYS DOC ---
Past Medical History Past Medical History: Other Additional Past Medical Histor: TBI, Rhoda COCHRAN. Past Surgical History: Other Additional Past Surgical Histo: L AKA, eye surgery Smoking Status: Never Smoker Alcohol Use: Occasionally Drug Use: Methamphetamine General Adult EDM: Chief Complaint: ABSCESS HPI: HPI: Patient is a 44 year old male who presents to the ED today complaining of an abscess of the right AC joint that he has had for 1 week, he states he used injectable methamphetamine a week ago and developed the abscess. He states yesterday he was able to pop and drain the abscess. Denies any fever. Review of Systems: Review of Systems: Constitutional: Denies fever or chills. [] Musculoskeletal: Denies back pain or joint pain. [] Integument: Reports right AC abscess. Neurologic: Denies headache, focal weakness or sensory changes. [] Psychiatric: Reports drug use Heart Score: Risk Factors: Risk Factors: DM, Current or recent (<one month) smoker, HTN, HLP, family hi story of CAD, obesity. Risk Scores: Score 0 - 3: 2.5% MACE over next 6 weeks - Discharge Home Score 4 - 6: 20.3% MACE over next 6 weeks - Admit for Clinical Observation Score 7 - 10: 72.7% MACE over next 6 weeks - Early Invasive Strategies Current Medications: Current Medications Medications (Trade) Dose Ordered Sig/Savi Start Time Stop Time Status Last Admin Dose Admin Cefepime HCl (Maxipime) 2 gm 1X ONCE 06/10/20 13:00 06/10/20 13:01 DC 06/10/20 13:09 2 GM Diphtheria/ Tetanus/Acell Pertussis (ADACEL TDap SYRINGE) 0.5 ml ONCE ONCE 06/10/20 14:15 06/10/20 14:16 DC 06/10/20 14:07 0.5 ML Morphine Sulfate (Morphine Sulfate) 4 mg PRN Q15MIN PRN 06/10/20 12:30 06/11/20 12:29 Piperacillin Sod/ Tazobactam Sod 4.5 gm/Sodium Chloride 100 ml @ 200 mls/hr 1X ONCE 06/10/20 12:30 06/10/20 12:59 UNV Sodium Chloride (Normal Saline Flush) 10 ml QSHIFT PRN 06/10/20 12:30 Tetanus/ Diphtheria Toxoids (Tenivac Syringe) 0.5 ml ONCE ONCE 06/10/20 12:30 06/10/20 12:31 Cancel Vancomycin HCl (Vanco Per Pharmacy) 1 each 1X ONCE 06/10/20 12:30 06/10/20 12:31 UNV Vancomycin HCl 2 gm/Sodium Chloride 500 ml @ 250 mls/hr 1X ONCE 06/10/20 13:00 06/10/20 14:59 06/10/20 13:10 250 MLS/HR Allergies: Allergies: Allergies Coded Allergies Type Severity Reaction Last Updated Verified Penicillins Allergy Intermediate 08/10/16 Yes Physical Exam: PE: Constitutional: Well developed, well nourished, no acute distress, non-toxic appearance. [] Hien Skin: Right antecubital joint with an open wound approximately 2 x 2 cm with no draining. The surrounding mild cellulitis and moderate swelling. No fluctuance to the region. Slightly limited range of motion to the right elbow due to pain and swelling. Full range of motion to the right fingers. +2 right radial pulse. Adequate radial, medial, ulnar sensation to the right hand. Cap refill less than 2 seconds the right fingers. Left BKA. Back: No tenderness, no CVA tenderness. [] Extremities: No tenderness, no cyanosis, no clubbing, ROM intact, no edema. [] Neurologic: Alert and oriented X 3, normal motor function, normal sensory function, no focal deficits noted. [] Psychologic: Affect normal, judgement normal, mood normal. [] Current Patient Data: Labs: Laboratory Tests Test 06/10/20 12:55 White Blood Count 8.6 x10^3/uL (4.0-11.0) Red Blood Count 5.17 x10^6/uL (4.30-5.70) Hemoglobin 15.5 g/dL (13.0-17.5) Hematocrit 46.1 % (39.0-53.0) Mean Corpuscular Volume 89 fL (79-100) Mean Corpuscular Hemoglobin 30 pg (25-35) Mean Corpuscular Hemoglobin Concent 34 g/dL (31-37) Red Cell Distribution Width 13.1 % (11.5-14.5) Platelet Count 293 x10^3/uL (140-400) Neutrophils (%) (Auto) 65 % (31-73) Lymphocytes (%) (Auto) 22 % (24-48) L Monocytes (%) (Auto) 9 % (0-9) Eosinophils (%) (Auto) 4 % (0-3) H Basophils (%) (Auto) 1 % (0-3) Neutrophils # (Auto) 5.6 x10^3/uL (1.8-7.7) Lymphocytes # (Auto) 1.9 x10^3/uL (1.0-4.8) Monocytes # (Auto) 0.8 x10^3/uL (0.0-1.1) Eosinophils # (Auto) 0.3 x10^3/uL (0.0-0.7) Basophils # (Auto) 0.1 x10^3/uL (0.0-0.2) Sodium Level 140 mmol/L (136-145) Potassium Level 3.7 mmol/L (3.5-5.1) Chloride Level 104 mmol/L (98-107) Carbon Dioxide Level 25 mmol/L (21-32) Anion Gap 11 (6-14) Blood Urea Nitrogen 14 mg/dL (8-26) Creatinine 1.0 mg/dL (0.7-1.3) Estimated GFR (Cockcroft-Gault) 81.2 BUN/Creatinine Ratio 14 (6-20) Glucose Level 90 mg/dL (70-99) Lactic Acid Level 1.5 mmol/L (0.4-2.0) Calcium Level 8.9 mg/dL (8.5-10.1) Total Bilirubin 0.3 mg/dL (0.2-1.0) Aspartate Amino Transferase (AST) 21 U/L (15-37) Alanine Aminotransferase (ALT) 28 U/L (16-63) Alkaline Phosphatase 107 U/L (46-116) Total Protein 7.6 g/dL (6.4-8.2) Albumin 3.3 g/dL (3.4-5.0) L Albumin/Globulin Ratio 0.8 (1.0-1.7) L Procalcitonin < 0.10 ng/mL (0.00-0.10) Laboratory Tests 06/10/20 12:55 Laboratory Tests 06/10/20 12:55 Vital Signs: Vital Signs Date Time Temp Pulse Resp B/P (MAP) Pulse Ox O2 Delivery O2 Flow Rate FiO2 06/10/20 11:05 98.8 96 18 137/96 (110) 98 Room Air 98.8 EKG: EKG: [] Radiology/Procedures: Radiology/Procedures: []PROCEDURE: VENOUS UPPER EXTREMITY RIGHT EXAM: Right upper extremity venous Doppler. HISTORY: Right upper extremity pain/swelling. COMPARISON: None. FINDINGS: Grayscale and Doppler analysis of the right upper extremity deep venous system was performed with graded compression and augmentation. The internal jugular, subclavian, axillary, brachial, basilic, cephalic, radial and ulnar veins were assessed. There is no evidence of deep venous thrombosis. Subcutaneous edema is noted. IMPRESSION: 1. No evidence of deep venous thrombosis. Electronically signed by: Craig Rutledge MD (06/10/2020 1:11 PM) [id number] DICTATED and SIGNED BY: CEE RUTLEDGE MD DATE: 06/10/20 [id number] PROCEDURE: ELBOW RIGHT 3V EXAM: ELBOW RIGHT 3V 06/10/2020 12:18 PM CLINICAL INDICATION:Abscess at antecubital fossa from drug use. COMPARISON:None TECHNIQUE:3 views of the right elbow. FINDINGS:No acute fracture. Alignment is normal. There is no joint effusion. There is diffuse subcutaneous edema. There is some soft tissue gas along the medial epicondyles and a small focus of soft tissue gas at the volar radial aspect of the elbow on oblique view. Probable packing material within the soft tissue at the antecubital fossa. Mild soft tissue thickening over the olecranon suspicious for bursitis. IMPRESSION:Diffuse subcutaneous edema with soft tissue gas along the medial epicondyle and to less extent at the volar radial aspect of the elbow. Probable olecranon bursitis. No joint effusion. Electronically signed by: Ruba Laguerre MD (06/10/2020 1:19 PM) [id number] DICTATED and SIGNED BY: RUBA LAGUERRE MD DATE: 06/10/20 [id number] Course & Med Decision Making: Course & Med Decision Making This is a 44-year-old male patient presenting to the ED today with an abscess on the right antecubital joint from IV drug use. Right upper extremity venous Doppler is negative for any acute findings. Right elbow x-rays noted for edema, possible bursitis. CBC, CMP, lactic with no acute findings. Patient is afebrile. I went to patient's room to give him results. Patient has left A and is wheelchair-bound found patient out of bed getting into his wheelchair with IV, he is stating he wants to leave right now because we are refusing to give him food. Informed him we can get him some food either from the kitchen or some snack if we have any in the ED. He was demanding his IV is removed right now or he will remove it himself. Informed patient at this point is leaving AGAINST MEDICAL ADVICE considering he needs antibiotics. Patient is alert oriented x4 and able to make his own decisions. He states he is not staying in the ED anymore he is living right away. Informed him I can send him a prescription for antibiotics. He stated he does not have time to wait, he started pulling his IV out. Went ahead and removed it. Informed him we can bring paperwork to sign out AGAINST MEDICAL ADVICE. He was already in his wheelchair stating he is not waiting anymore and he left Dragon Disclaimer: Monique Disclaimer: This electronic medical record was generated, in whole or in part, using a voice recognition dictation system. Departure Departure Impression: Primary Impression: Abscess of right upper extremity Additional Impression: Methamphetamine use Disposition: 07 AMA/ELOPED/LWBS Condition: STABLE Referrals: NO PCP (PCP) Scripts Sulfamethoxazole/Trimethoprim (BACTRIM DS TABLET) 1 Each Tablet 1 TAB PO BID for 10 Days, #20 TAB 0 Refills Prov: ADEN DESHPANDE APRN 06/10/20 ADEN DESHPANDE APRN Jun 10, 2020 14:36
== END 2020-06-10 14:40 | disposition left against medical advice (07) ==
LOC: ER 09:56
DX: L02.413 Cutaneous abscess of right upper limb (principal); R60.0 Localized edema; F15.90 Other stimulant use, unspecified, uncomplicated; R20.2 Paresthesia of skin; Z87.820 Personal history of traumatic brain injury; Z98.890 Other specified postprocedural states; Z88.0 Allergy status to penicillin
CPT/HCPCS: 36415; 73080; 80053; 83605; 84145; 85025; 87040; 87070; 90471; 90715; 93971; 96365; 96375; 99285; J0692; J3370; J7040

== ENCOUNTER 2020-07-30 13:52 | Emergency (ER) | payer MEDICARE ==
[~2020-07-30] VITALS: Ht 175.3 cm; Wt 104.0 kg
[~2020-07-30 13:52] MED LIST changes: +SULF1TAB24 PO
[2020-07-30 15:20] VITALS: BP 155/102
--- NOTE | 2020-07-30 15:22 | PHYS DOC ---
Past Medical History Past Medical History: Other Additional Past Medical Histor: TBI, Rhoda AKA. Past Surgical History: Other Additional Past Surgical Histo: L AKA, eye surgery Smoking Status: Never Smoker Alcohol Use: Occasionally Drug Use: Methamphetamine General Adult EDM: Chief Complaint: HEADACHE HPI: HPI: Patient is a 44 year old male presents emergency department complaining of mild frontal headache for the past 2 days along with fatigue and decreased taste and smell for the past 2 days as well. Patient states he does not want anything for his headache, he is just requested a COVID-19 test today. Patient reports he lives at home by himself. Patient states that he has a history of high blood pressure and forgot to take his high blood pressure medicines today but will take it when he gets home. Patient denies any chest pains, shortness of breath, cough, or congestion. Patient denies any nausea or vomiting or abdominal pains. Patient denies any other physical complaints or physical symptoms. Review of Systems: Review of Systems: 14 body systems of review of systems have been reviewed. See HPI for pertinent positives and negative responses, otherwise all other systems are negative, nonpertinent or noncontributory. Heart Score: Risk Factors: Risk Factors: DM, Current or recent (<one month) smoker, HTN, HLP, family history of CAD, obesity. Risk Scores: Score 0 - 3: 2.5% MACE over next 6 weeks - Discharge Home Score 4 - 6: 20.3% MACE over next 6 weeks - Admit for Clinical Observation Score 7 - 10: 72.7% MACE over next 6 weeks - Early Invasive Strategies Allergies: Allergies: Allergies Coded Allergies Type Severity Reaction Last Updated Verified Penicillins Allergy Intermediate 08/10/16 Yes Physical Exam: PE: Constitutional: Well developed, well nourished, no acute distress, non-toxic appearance. HENT: Normocephalic, atraumatic, bilateral external ears normal, oropharynx moist, no oral exudates, nose normal. Eyes: PERRLA, EOMI, conjunctiva normal, no discharge. Neck: Normal range of motion, no tenderness, supple, no stridor. Cardiovascular:Heart rate regular rhythm, no murmur Lungs & Thorax: Bilateral breath sounds clear to auscultation Abdomen: Bowel sounds normal, soft, no tenderness, no masses, no pulsatile masses. Skin: Warm, dry, no erythema, no rash. Back: No tenderness, no CVA tenderness. Extremities: No tenderness, no cyanosis, no clubbing, ROM intact, no edema. Neurologic: Alert and oriented X 3, normal motor function, normal sensory function, no focal deficits noted. Psychologic: Affect normal, judgement normal, mood normal. EKG: EKG: [] Radiology/Procedures: Radiology/Procedures: [] Course & Med Decision Making: Course & Med Decision Making Pertinent Labs and Imaging studies reviewed. (See chart for details) 44-year-old male, vital signs reviewed, reports emergency department requesting a COVID-19 test. Patient has symptoms of mild headache and loss of taste and smell. Will obtain a COVID-19 test today, patient will be considered a PUI. Discussed with patient social distancing and gave COVID-19 virus instructions. Patient gave verbal understanding of discharge home instructions, social isolation and distancing precautions, return to ER precautions or concerns, had no further questions or concerns and was discharged home. Pression: PUI Monique Disclaimer: Monique Disclaimer: This electronic medical record was generated, in whole or in part, using a voice recognition dictation system. Departure Departure Impression: Primary Impression: Person under investigation for COVID-19 Additional Impressions: Educated about COVID-19 virus infection Counseled about COVID-19 virus infection Disposition: 01 DC HOME SELF CARE/HOMELESS Condition: GOOD Referrals: NO PCP (PCP) Additional Instructions: I have given you instructions and information about the COVID-19 virus attached to this document. Please return to the emergency department for worsening symptoms or other concerns, follow-up with your primary care physician as needed. Please take your prescribed blood pressure medicine when you get home today. EMERGENCY DEPARTMENT GENERAL DISCHARGE INSTRUCTIONS Thank you for coming to [facility] Emergency Department (ED) jenn carl and trusting us with you care. We trust that you had a positive experience in our Emergency Department. If you wish to speak to the department management, you may call the Director at [phone]. YOUR FOLLOW UP INSTRUCTIONS ARE FOLLOWS: 1. Do you have a private Doctor? If you do not have a private doctor, please ask for a resource list of physicians or clinics that may be able to assist you with follow up care. 2. The Emergency Physicain has interpreted your x-rays. The X-Ray specialist will also review them. If there is a change in the findings, you will be notified in 48 hours when at all possible. 3. A lab test or culture has been done, your results will be reviewed and you will be notified if you need a change in treatment. ADDITIONAL INSTRUCTIONS AND INFORMATION: 1. Your care today has been supervised by a physician who is specially trained in emergency care. Many problems require more than one evaluation for a complete diagnosis and treatment. We recommend that you schedule your follow up appointment as recommended to ensure complete treatment of you illness or injury. If you are unable to obtain follow up care and continue to have a problem, or if your condition worsens, we recommend that you return to the ED. 2. We are not able to safely determine your condition over the phone nor are we able to give sound medical advice over the phone. For these safety reasons, if you call for medical advice we will ask you to come to the ED for further evaluation. 3. If you have any questions regarding these discharge instructions please call the ED at [phone]. SAFETY INFORMATION: In the interest of safety, wellness, and injury prevention; we encourage you to wear your sealbelt, if you smoke; quite smoking, and we encourage family to use a protective helmet for bicycling and other sporting events that present an increased risk for head injury. IF YOUR SYMPTOMS WORSEN OR NEW SYMPTOMS DEVELOP, OR YOU HAVE CONCERNS ABOUT YOUR CONDITION; OR IF YOUR CONDITION WORSENS WHILE YOU ARE WAITING FOR YOUR FOLLOW UP APPOINTMENT; EITHER CONTACT YOUR PRIMARY CARE DOCTOR, THE PHYSICIAN WHOSE NAME AND NUMBER YOU WERE GIVEN, OR RETURN TO THE ED IMMEDIATELY. You have been tested for or diagnosed with COVID-19. It is an infection caused by a new type of coronavirus. COVID-19 will cause cold-like or mild flu symptoms in most. It can cause more severe symptoms like problems breathing in some. There is no treatment for COVID-19. The body will clear the infection over time. Self-care will help to ease discomfort. Steps to Take: Self-Care Rest as needed. Healthy habits may help you feel better. Steps include: Choose healthy foods including fruits and vegetables. Drink water throughout the day. Get plenty of sleep each night. If you smoke, try to quit. It may ease breathing. Avoid alcohol. Keep Others Healthy The virus can spread to others. Droplets are released every time you sneeze or cough. The droplets can get into the mouth, nose, or eyes of people near you and lead to infection. To lower the chances of spreading COVID-19 to others: Stay at home until your doctor has said it is safe to leave. If you tested positive this will mean staying isolated until both of the following are true: At least 7 days have passed since the start of illness. You are free of fever for at least 72 hours without the use of medicine. During this time: - Avoid public areas, events, or transportation. Do not return to work or school until your doctor has said it is safe to do so. - Call ahead if you need to go to a medical center. Let them know you may have COVID-19. It will help them guide you where to go. They may also ask you to wear a facemask when you come to the office. - If you call for emergency medical services, let them know you may have COVID- 19. While at home: - Try to avoid close contact with others. Stay about 6 feet away. - If possible, spend most of your time in a separate room from others. - Use a face mask if you will be in close contact with others such as sharing a room or vehicle. - Have someone wipe down common surfaces in the home. Use household device repair technician every day on areas like doorknobs, counters, or sinks. - Cough or sneeze into a tissue. Throw the tissue away right after use. If a tissue is not available, cough or sneeze into your elbow. - Wash your hands often. Wash them after sneezing or coughing. Use soap and water and wash for at least 20 seconds. Alcohol based hand ribbon cleaner can be used if soap and water is not available. - Do not prepare food for others. Avoid sharing personal items like forks, spoons, or toothbrushes. - Avoid close contact with pets while you are sick. There is no evidence of the virus passing to pets. This is a safety step until more is known about this virus. Isolation can be frustrating. Social interaction can help. Keep in touch with friends and family through phone and tech options. You can still interact with others in your home, just keep a safe distance of about 6 feet. Follow-up: Your doctors office will check in with you to see if there are any changes in your health. You may be asked to keep track of symptoms to share with them. They will also let you know when you are clear to be in public again. Problems to Look Out For: Contact your doctor if your recovery is not going as you expect. Get emergency care if you have problems such as: - Trouble breathing - Nonstop chest pain or pressure - Changes in awareness, confusion, or problems waking - Lips or face have bluish color - Worsening of symptoms If you think you have an emergency, call for emergency medical services right away. As taken from [facility] AGUS HURTADO APRN Jul 30, 2020 15:22
== END 2020-07-30 15:51 | disposition home or self-care (01) ==
LOC: ER 13:52
DX: R51.9 Headache, unspecified (principal); Z20.822 Contact with and (suspected) exposure to COVID-19; R53.83 Other fatigue; F15.90 Other stimulant use, unspecified, uncomplicated; Z87.820 Personal history of traumatic brain injury; Z98.890 Other specified postprocedural states; Z88.0 Allergy status to penicillin
CPT/HCPCS: 99283; C9803; U0003

== ENCOUNTER 2020-09-19 14:53 | Emergency (ER) | payer SELFPAY ==
[~2020-09-19] VITALS: Ht 175.3 cm; Wt 109.0 kg
[2020-09-19] MEDS ORDERED: NALOXONE 2 MG/2 ML DISP.SYRIN. ONE (15:04)
--- NOTE | 2020-09-19 15:13 | EKG ---
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
[2020-09-19] MEDS ORDERED: NALOXONE 2 MG/2 ML DISP.SYRIN. IV ONE (15:15)
[2020-09-19 16:03] VITALS: BP 149/91
--- NOTE | 2020-09-19 17:28 | ED.ADGEN ---
Past Medical History Past Medical History: Other Additional Past Medical Histor: TBI, L AKA. Past Surgical History: Other Additional Past Surgical Histo: L AKA, eye surgery Smoking Status: Never Smoker Alcohol Use: Occasionally Drug Use: Methamphetamine General Adult EDM: Chief Complaint: DRUG ABUSE HPI: HPI: Patient is a 45-year-old male who presents to the emergency room after taking a handful of heroin. Patient has never used heroin previously. He states he is feeling very tired and lethargic. He does use methamphetamines. He came to the hospital because of how he is feeling. He denies any other complaints. Review of Systems: Review of Systems: Complete ROS is negative unless otherwise documented in HPI Current Medications: Current Medications Medications (Trade) Dose Ordered Sig/Savi Start Time Stop Time Status Last Admin Dose Admin Naloxone HCl (NARCAN 2mg SYRINGE) 2 mg 1X ONCE 09/19/20 15:15 09/19/20 15:16 DC 09/19/20 15:11 2 MG Allergies: Allergies: Allergies Coded Allergies Type Severity Reaction Last Updated Verified Penicillins Allergy Intermediate 08/10/16 Yes Physical Exam: PE: General: Awake, lethargic, NAD. Well Nourished, well hydrated. Cooperative HEENT: Atraumatic, EOMI, PERRL, airway patent, moist oral mucosa Neck: Supple, trachea midline Respiratory: CTA bilaterally, normal effort, no wheezing/crackles CV: RRR, no murmur, cap refill <2 GI: Soft, nondistended, nontender, no masses MSK: No obvious deformities Skin: Warm, dry, multiple wounds on the body consistent with picking and injection Neuro: A&O x3, speech NL, sensory and motor grossly intact, no focal deficits Psych: Normal affect, normal mood, not suicidal or homicidal Current Patient Data: Vital Signs: Vital Signs Date Time Temp Pulse Resp B/P (MAP) Pulse Ox O2 Delivery O2 Flow Rate FiO2 09/19/20 16:03 84 18 149/91 (110) 99 Room Air 09/19/20 15:02 98.7 98.7 EKG: EKG: [] Heart Score: C/O Chest Pain: N/A Risk Factors: Risk Factors: DM, Current or recent (<one month) smoker, HTN, HLP, family history of CAD, obesity. Risk Scores: Score 0 - 3: 2.5% MACE over next 6 weeks - Discharge Home Score 4 - 6: 20.3% MACE over next 6 weeks - Admit for Clinical Observation Score 7 - 10: 72.7% MACE over next 6 weeks - Early Invasive Strategies Radiology/Procedures: Radiology/Procedures: [] Course & Med Decision Making: Course & Med Decision Making Pertinent Labs and Imaging studies reviewed. (See chart for details) Patient is a 45-year-old male who presents to the emergency room complaining of a possible heroin overdose. Patient has never used heroin previously. He is lethargic on exam and was given Narcan with significant improvement. He was observed in the emergency room for 2 hours after Narcan was given and continues to feel well. Patient does have multiple wounds on his body from where he has injected methamphetamines. They do not appear to be acutely infected. I have discussed with the patient that he should stop any further drug use. Patient states understanding and requests to go home. Patient's test results and vitals while in the ED were fully reviewed and discussed with the patient. Patient is stable and at this time does not need admission to the hospital. We have discussed strict return precautions and the importance of following up with their Primary Care Physician. Patient stated understanding and was given an opportunity to ask any questions. Patient is in agreement with plan. Monique Disclaimer: Monique Disclaimer: This electronic medical record was generated, in whole or in part, using a voice recognition dictation system. Departure Departure Impression: Primary Impression: Heroin overdose Disposition: 01 DC HOME SELF CARE/HOMELESS Condition: IMPROVED Referrals: NO PCP (PCP) Patient Instructions: Heroin Abuse and Withdrawal RADHA PARKS MD Sep 19, 2020 17:28
== END 2020-09-19 17:30 | disposition home or self-care (01) ==
LOC: ER 14:53
DX: T40.1X1A Poisoning by heroin, accidental (unintentional), initial encounter (principal); R53.83 Other fatigue; Z88.0 Allergy status to penicillin; Y92.89 Other specified places as the place of occurrence of the external cause
CPT/HCPCS: 93005; 96374; 99283; J2310

== ENCOUNTER 2020-12-02 10:21 | Emergency (ER) | payer MEDICARE, OTHER | END 2020-12-02 11:50 | disposition left against medical advice (07) | LOC: ER 10:21 | DX: M54.5 Low back pain (principal); M25.521 Pain in right elbow; Z53.21 Procedure and treatment not carried out due to patient leaving prior to being seen by health care provider; W18.39XA Other fall on same level, initial encounter; Y93.89 Activity, other specified; Y92.89 Other specified places as the place of occurrence of the external cause; Y99.8 Other external cause status ==

== ENCOUNTER 2021-07-16 11:42 | Emergency (ER) | payer MEDICARE ==
[~2021-07-16] VITALS: Ht 175.3 cm; Wt 109.0 kg
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
[2021-07-16 13:15] VITALS: BP 166/78
== END 2021-07-16 13:30 | disposition home or self-care (01) ==
LOC: ER 11:42
DX: S30.1XXA Contusion of abdominal wall, initial encounter (principal); Z77.098 Contact with and (suspected) exposure to other hazardous, chiefly nonmedicinal, chemicals; Y08.89XA Assault by other specified means, initial encounter; Y93.89 Activity, other specified; Y92.89 Other specified places as the place of occurrence of the external cause; Y99.8 Other external cause status
CPT/HCPCS: 99283

== ENCOUNTER 2021-08-17 00:11 | Emergency (ER) | payer MEDICARE, OTHER ==
[~2021-08-17] VITALS: Ht 175.3 cm; Wt 104.5 kg
[2021-08-17 00:25] VITALS: BP 120/77
[2021-08-17] MEDS ORDERED: LIDOCAINE 1%/EPI 1:100,000 20 ML VIAL. INJ ONE (01:00)
[2021-08-17] MEDS ORDERED: DOXY100C3 PO (01:44)
--- NOTE | 2021-08-17 01:45 | PHYS DOC ---
Past Medical History Past Medical History: Other Additional Past Medical Histor: TBI w speech deficit Past Surgical History: Other Additional Past Surgical Histo: L AKA, eye surgery Smoking Status: Former Smoker Alcohol Use: None Drug Use: Methamphetamine General Adult EDM: Chief Complaint: LACERATION/AVULSION HPI: HPI: Patient is a 45 year old male who presents with laceration to his left thumb. His compressor engine stopped working and he had reached in while it was running and something cut the back of his thumb. Had immediate bleeding and put a bandage on it and presented to the emergency department. Happened just prior to arrival Unsure of last tetanus Can still feel the tip of his thumb and move his thumb in all directions Review of Systems: Review of Systems: Constitutional: Denies fever or chills. [] HENT: Denies nasal congestion or sore throat. [] Respiratory: Denies cough or shortness of breath. [] Cardiovascular: Denies chest pain or edema. [] Integument: Left thumb laceration Psychiatric: Denies depression or anxiety. [] Heart Score: C/O Chest Pain: No Current Medications: Current Medications Medications (Trade) Dose Ordered Sig/Savi Start Time Stop Time Status Last Admin Dose Admin Lidocaine/ Epinephrine (LIDOCAINE 1%-EPI 1:100,000 Multi-Dose) 20 ml 1X ONCE 08/17/21 01:00 08/17/21 01:01 DC 08/17/21 00:35 20 ML Allergies: Allergies: Allergies Coded Allergies Type Severity Reaction Last Updated Verified Penicillins Allergy Intermediate 08/10/16 Yes Physical Exam: PE: Constitutional: Well developed, well nourished, no acute distress, non-toxic appearance. [] Cardiovascular:Heart rate regular rhythm, no murmur [] Lungs & Thorax: Normal work of breathing Extremities: Left thumb with 2 cm laceration of the dorsal aspect between the DIP and PIP. Pressure dressing was in place and it appeared hemostatic. When pressure dressing was removed the distal half of the wound squirted blood. It did not appear to be pulsatile. Patient was able to flex and extend the thumb fully. Base of the wound was explored and no evidence of tendinous injury was found. No evidence of bony injury. Brisk cap refill to the distal finger, distal sensation intact. Psychologic: Affect normal, judgement normal, mood normal. [] Current Patient Data: Vital Signs: Vital Signs Date Time Temp Pulse Resp B/P (MAP) Pulse Ox O2 Delivery O2 Flow Rate FiO2 08/17/21 00:25 98.3 92 17 120/77 (91) 98 Room Air 98.3 EKG: EKG: [] Radiology/Procedures: Radiology/Procedures: Indication: Dorsal left thumb laceration Procedure: The wound was examined as above with brisk spurting (but non- pulsatile bleeding from the distal edge of the wound. This was slowed with injection of intradermal lidocaine with epinephrine. The bleeding was further controlled with two 4-0 silk figure of eight sutures placed distal to the wound. Bleeding was then primarily slow oozing from two discrete locations. Electrocautery was used on these discrete areas. The wound was then further cl eansed with 300 cc of sterile saline under pressure irrigation. The base of the wound was explored without evidence of tendon or bony injury. The skin was then approximated with two 4-0 silk horizontal mattress sutures. The patient was observed for 20 minutes without return of active bleeding. The wound was dressed with guaze and wrapped loosely with coban. Total repaired wound length: 2 cm. Other Items: See above The patient tolerated the procedure well. Complications: None.[] Course & Med Decision Making: Course & Med Decision Making Pertinent Labs and Imaging studies reviewed. (See chart for details) Patient is a 45-year-old male who presented with a laceration to his dorsal left thumb. There is brisk bleeding requiring a complicated closure as described above. Bleeding was well controlled following the procedure. Following procedure patient continued to have intact distal sensation, brisk capillary refill, and full range of motion of the thumb. Tdap updated. Given the dirty nature of the wound will be placed on prophy lactic antibiotics. Dragon Disclaimer: Monique Disclaimer: This electronic medical record was generated, in whole or in part, using a voice recognition dictation system. Departure Departure Impression: Primary Impression: Thumb laceration Disposition: 01 HOME / SELF CARE / HOMELESS Condition: STABLE Referrals: NO PCP (PCP) Patient Instructions: Laceration Care, Adult Additional Instructions: We repaired your laceration with 4 sutures. These will need to come out in 7 to 10 days. Please schedule appointment with your primary care doctor, or visit in ED or urgent care to have these removed. Keep the area clean and dry. Keep it dressed. Use an ointment such as Neosporin or bacitracin on it. To prevent infection we have prescribed an antibiotic called doxycycline. Please take the full course of this medication as prescribed. If you have increasing swelling, pain, redness, or warmth these are all signs of potential infection. If these occur please see your doctor. Scripts Doxycycline Hyclate (DOXYCYCLINE HYCLATE) 100 Mg Capsule 1 CAP PO BID for 7 Days, #14 CAP 0 Refills Prov: CEE SANDOVAL MD 08/17/21 CEE SANDOVAL MD Aug 17, 2021 01:45
[2021-08-17] MEDS ORDERED: HYDR-2761 PO (01:47)
[2021-08-17] MEDS ORDERED: DIPHTH,PERTUSS(ACELL),TET TOX 0.5 ML DISP.SYRIN. VAX IM ONE (02:00)
== END 2021-08-17 01:56 | disposition home or self-care (01) ==
LOC: ER 00:11
DX: S61.012A Laceration without foreign body of left thumb without damage to nail, initial encounter (principal); Z87.891 Personal history of nicotine dependence; Z88.0 Allergy status to penicillin; Y28.8XXA Contact with other sharp object, undetermined intent, initial encounter; Y93.89 Activity, other specified; Y92.89 Other specified places as the place of occurrence of the external cause; Y99.8 Other external cause status
CPT/HCPCS: 12001; 90471; 90715; 99283; J3490